=== PATIENT | female | born 1940 | race Caucasian/White ===

== ENCOUNTER 2018-03-24 13:36 | Emergency (ER) | payer MEDICARE, OTHER ==
[~2018-03-24] VITALS: Ht 172.7 cm; Wt 78.8 kg
[~2018-03-24 13:36] MED LIST: AMI25T PO; DILT180C89 PO; LISI40TA4 PO; METF500T PO; MULT-785 PO; OMEP-84 PO; ZET10T PO
[2018-03-24 14:22] LABS: CLARITY,URINE CLEAR (Clear); COLOR,URINE YELLOW (Yellow); GLUCOSE, URINE NEGATIVE (Neg); KETONES,URINE NEGATIVE (Neg); LEUKOCYTE ESTERASE ,URINE NEGATIVE (Neg); NITRITES, URINE NEGATIVE (Neg); OCCULT BLOOD,URINE SMALL (Neg); PH,URINE 5.5 (4.8-8.0); PROTEIN,URINE NEGATIVE (Neg); UROBILINOGEN,URINE 0.2 E.U/dL (0.2-1.0)
[2018-03-24 14:25] LABS: BASOPHILS % (AUTO) 0.3 % (0-1); EOSINOPHILS % (AUTO) 0.5 % (0-6); HEMATOCRIT 37.4 % (35.0-45.0); LYMPHOCYTES # (AUTO) 0.9 X10'3 (1.1-4.8); MEAN CORPUSCULAR HGB CONC 34.8 % (33.0-36.5); MEAN CORPUSCULAR VOLUME 92.2 FL (78-98); MEAN PLATELET VOLUME 8.5 FL (7.4-10.4); MONOCYTES # (AUTO) 0.3 X10'3 (0-0.9); MONOCYTES % (AUTO) 3.8 % (2-12); NEUTROPHILS # (AUTO) 7.4 X10'3 (1.8-7.7); NEUTROPHILS % (AUTO) 84.4 % (42-75); PLATELET COUNT 205 X10'3 (140-440); RED BLOOD COUNT 4.05 X10'6 (4.20-5.60); RED CELL DISTRIBUTION WIDTH 13.3 % (11.5-14.5); WHITE BLOOD COUNT 8.6 X10'3 (4.5-11.0)
[2018-03-24 14:32] LABS: PROTHROMBIN TIME 10.4 SECONDS (9.0-12.0)
[2018-03-24 14:33] LABS: UA COLLECTION TYPE CLN CATCH MIDSTREAM
[2018-03-24 14:34] LABS: BACTERIA,URINE 1+ /HPF (Neg); MUCUS STRANDS MANY /LPF (Neg); RBC,URINE 0-2 /HPF (0-2); SQUAMOUS EPITHELIAL CELL,UR MANY /LPF (FEW); WBC,URINE 0-4 /HPF (0-4)
[2018-03-24 14:43] LABS: ALANINE AMINOTRANSFERASE 39 U/L (12-78); ALBUMIN 4.1 G/DL (3.4-5.0); ALBUMIN/GLOBULIN RATIO 1.1 (1.1-1.5); ALKALINE PHOSPHATASE 70 IU/L (46-116); ANION GAP 11 (8-16); ASPARTATE AMINO TRANSFERASE 37 U/L (10-37); BILIRUBIN,TOTAL 0.4 MG/DL (0.1-1.0); BLOOD UREA NITROGEN 20 MG/DL (7-18); BUN/CREATININE RATIO 23.8 (6.6-38.0); CHLORIDE 101 MMOL/L (99-107); CREATININE 0.84 MG/DL (0.40-0.90); GLUCOSE 126 MG/DL (70-104); POTASSIUM 3.9 MMOL/L (3.5-5.1); SODIUM 140 MMOL/L (135-145); TOTAL CARBON DIOXIDE 28.1 MMOL/L (24-32); TOTAL PROTEIN 7.9 G/DL (6.4-8.2); eGFR 66 ML/MIN
[2018-03-24] MEDS ORDERED: ondansetron/PF 4mg/2ml inj IV ONE (14:55)
[2018-03-24] MEDS ORDERED: fentaNYL/PF 50MCG/1 ML 2ML syringe IV ONE ×2 (14:55→16:55)
[2018-03-24] MEDS ORDERED: iohexol 300mg/ml 100ml inj. ONE (15:01)
[2018-03-24] MEDS ORDERED: fentaNYL/PF 50MCG/1 ML 2ML syringe ONE (16:57)
[2018-03-24 17:42] VITALS: BP 154/88
[2018-03-24] MEDS ORDERED: HYDR-4353 PO (17:42)
== END 2018-03-24 17:49 | disposition home or self-care (01) ==
LOC: ER 13:36
DX: K43.9 Ventral hernia without obstruction or gangrene (principal); R10.84 Generalized abdominal pain; I10 Essential (primary) hypertension; E11.9 Type 2 diabetes mellitus without complications; Z98.890 Other specified postprocedural states; Z90.710 Acquired absence of both cervix and uterus; Z87.891 Personal history of nicotine dependence; Z88.1 Allergy status to other antibiotic agents; Z88.6 Allergy status to analgesic agent; Z88.5 Allergy status to narcotic agent; Z79.899 Other long term (current) drug therapy
CPT/HCPCS: 36415; 74177; 80053; 81001; 85025; 85610; 96374; 96375; 96376; 99285; J2405; J3010; Q9967

== ENCOUNTER 2018-03-25 01:39 | Emergency (ER) | payer MEDICARE, OTHER ==
[~2018-03-25] VITALS: Ht 165.1 cm; Wt 79.5 kg
[~2018-03-25 01:39] MED LIST changes: +HYDR-4353 PO
[2018-03-25 01:40] VITALS: BP 193/97
[2018-03-25] MEDS ORDERED: morphine 4 MG/ML inj SYRINge IV PRN (02:15)
[2018-03-25] MEDS ORDERED: ondansetron/PF 4mg/2ml inj IV ONE (02:15)
[2018-03-25] MEDS ORDERED: normal saline 1000ML IV soln IVB ONE (02:15)
[2018-03-25 02:39] LABS: BASOPHILS % (AUTO) 0 % (0-1); EOSINOPHILS % (AUTO) 0.2 % (0-6); HEMOGLOBIN 14.1 g/dl (12.0-16.0); LYMPHOCYTES # (AUTO) 0.8 X10'3 (1.1-4.8); MEAN CORPUSCULAR HGB CONC 33.5 % (33.0-36.5); MEAN CORPUSCULAR VOLUME 92.6 FL (78-98); MEAN PLATELET VOLUME 8.4 FL (7.4-10.4); MONOCYTES # (AUTO) 0.4 X10'3 (0-0.9); MONOCYTES % (AUTO) 3.5 % (2-12); NEUTROPHILS # (AUTO) 9.4 X10'3 (1.8-7.7); NEUTROPHILS % (AUTO) 88.3 % (42-75); PLATELET COUNT 202 X10'3 (140-440); RED BLOOD COUNT 4.53 X10'6 (4.20-5.60); RED CELL DISTRIBUTION WIDTH 13.1 % (11.5-14.5); WHITE BLOOD COUNT 10.6 X10'3 (4.5-11.0)
[2018-03-25 02:51] LABS: ALANINE AMINOTRANSFERASE 42 U/L (12-78); ALBUMIN 4.1 G/DL (3.4-5.0); ALKALINE PHOSPHATASE 73 IU/L (46-116); ANION GAP 12 (8-16); ASPARTATE AMINO TRANSFERASE 35 U/L (10-37); BILIRUBIN,TOTAL 0.7 MG/DL (0.1-1.0); BLOOD UREA NITROGEN 18 MG/DL (7-18); BUN/CREATININE RATIO 20.7 (6.6-38.0); CALCIUM 9.4 MG/DL (8.5-10.1); CHLORIDE 100 MMOL/L (99-107); CREATININE 0.87 MG/DL (0.40-0.90); GLUCOSE 175 MG/DL (70-104); LIPASE 195 U/L (73-393); POTASSIUM 3.7 MMOL/L (3.5-5.1); SODIUM 138 MMOL/L (135-145); TOTAL CARBON DIOXIDE 25.6 MMOL/L (24-32); TOTAL PROTEIN 8.1 G/DL (6.4-8.2); eGFR 63 ML/MIN
== END 2018-03-25 03:17 | disposition home or self-care (01) ==
LOC: ER 01:39
DX: R10.84 Generalized abdominal pain (principal); R10.10 Upper abdominal pain, unspecified; I10 Essential (primary) hypertension; E11.9 Type 2 diabetes mellitus without complications; Z90.49 Acquired absence of other specified parts of digestive tract; Z90.710 Acquired absence of both cervix and uterus; Z98.890 Other specified postprocedural states; Z88.1 Allergy status to other antibiotic agents; Z88.6 Allergy status to analgesic agent; Z88.5 Allergy status to narcotic agent; Z79.899 Other long term (current) drug therapy
CPT/HCPCS: 36415; 80053; 83690; 85025; 96361; 96374; 99284; J2405; J7030

== ENCOUNTER 2024-02-03 18:57 | Inpatient (IN) | payer MEDICARE, OTHER ==
[~2024-02-03] VITALS: Ht 177.8 cm; Wt 86.3 kg
[~2024-02-03 18:57] MED LIST changes: -HYDR-4353 PO; +LISI40TA13 PO; -LISI40TA4 PO
[2024-02-03 20:30] LABS: BILIRUBIN,URINE NEGATIVE (Neg); CLARITY,URINE CLEAR (Clear); COLOR,URINE YELLOW (Yellow); GLUCOSE, URINE NEGATIVE (Neg); KETONES,URINE NEGATIVE (Neg); LEUKOCYTE ESTERASE ,URINE NEGATIVE (Neg); NITRITES, URINE NEGATIVE (Neg); OCCULT BLOOD,URINE NEGATIVE (Neg); PROTEIN,URINE NEGATIVE (Neg); UROBILINOGEN,URINE 0.2 E.U/dL (0.2-1.0)
[2024-02-03 20:42] LABS: UA COLLECTION TYPE CLN CATCH MIDSTREAM
[2024-02-03 21:48] LABS: BASOPHILS % (AUTO) 0.6 % (0-1); EOSINOPHILS # (AUTO) 0.1 X10'3 (0-0.9); EOSINOPHILS % (AUTO) 1.9 % (0-6); HEMATOCRIT 38.2 % (35.0-45.0); HEMOGLOBIN 12.6 g/dl (12.0-16.0); LYMPHOCYTES # (AUTO) 1.5 X10'3 (1.1-4.8); LYMPHOCYTES % (AUTO) 19.1 % (21-51); MEAN CORPUSCULAR HEMOGLOBIN 31.2 PG (27.0-31.0); MEAN CORPUSCULAR HGB CONC 32.9 g/dL (33.0-36.5); MEAN CORPUSCULAR VOLUME 94.8 FL (78-98); MEAN PLATELET VOLUME 8.6 FL (7.4-10.4); MONOCYTES # (AUTO) 0.4 X10'3 (0-0.9); MONOCYTES % (AUTO) 5.7 % (2-12); NEUTROPHILS # (AUTO) 5.7 X10'3 (1.8-7.7); NEUTROPHILS % (AUTO) 72.7 % (42-75); PLATELET COUNT 252 X10'3 (140-440); RED BLOOD COUNT 4.03 X10'6 (4.20-5.60); RED CELL DISTRIBUTION WIDTH 14.6 % (11.5-14.5); WHITE BLOOD COUNT 7.8 X10'3 (4.5-11.0)
[2024-02-03 22:05] LABS: ALANINE AMINOTRANSFERASE 32 U/L (12-78); ALBUMIN 3.5 G/DL (3.4-5.0); ALBUMIN/GLOBULIN RATIO 0.9 (1.1-1.5); ALKALINE PHOSPHATASE 85 IU/L (46-116); ANION GAP 6 (8-16); ASPARTATE AMINO TRANSFERASE 23 U/L (10-37); BILIRUBIN,TOTAL 0.3 MG/DL (0.1-1.0); BLOOD UREA NITROGEN 17 MG/DL (7-18); BUN/CREATININE RATIO 17.3 (10.0-20.0); CALCIUM 8.7 MG/DL (8.5-10.1); CHLORIDE 104 MMOL/L (99-107); CREATININE 0.98 MG/DL (0.40-0.90); GLUCOSE 129 MG/DL (70-104); SODIUM 141 MMOL/L (135-145); TOTAL CARBON DIOXIDE 30.9 MMOL/L (24-32); TOTAL PROTEIN 7.3 G/DL (6.4-8.2); eCRCL 47 ML/MIN; eGFR 54 ML/MIN
[2024-02-03] MEDS: potassium Cl 20 mEq SR tablet PO STA (23:03)
[2024-02-03] MEDS: LORazepam 2 mg/ml vial IV ONE (23:22)
[2024-02-04] MEDS: LORazepam 2 mg/ml vial IV ONE (01:57)
[2024-02-04] MEDS: haloperidol lactate 5mg/ml inj IVH ONE (01:59)
[2024-02-04] MEDS: ziprasidone IM 20mg inj **IM only IM ONE (02:45)
[2024-02-04] MEDS: normal saline 1000ml 1,000 ML IV SCH (03:00)
[2024-02-04] MEDS ORDERED: potassium Cl 40MEQ/1/2NS 520ml 520 ML IV PRN (03:25)
[2024-02-04] MEDS ORDERED: magnesium sulf-water 4G/100mL 100 ML IV PRN (03:25)
[2024-02-04] MEDS ORDERED: acetaminophen 325mg tablet PO PRN (03:25)
[2024-02-04] MEDS ORDERED: potassium Cl 20 mEq SR tablet PO PRN (03:25)
[2024-02-04] MEDS ORDERED: magnesium sulf-water 2g/50mL 50 ML IV PRN (03:25)
[2024-02-04] MEDS ORDERED: ondansetron/PF 4mg/2ml inj IV PRN (03:25)
[2024-02-04] MEDS ORDERED: magnesium Cl slow-release 64mg tablet PO PRN (03:25)
[2024-02-04] MEDS ORDERED: mag hydrox/Alum hydrox/simeth 30ml oral suspension PO PRN (03:25)
[2024-02-04] MEDS: haloperidol lactate 5mg/ml inj IM ONE (04:26)
[2024-02-04] MEDS ORDERED: glucagon, human recombinant 1mg kit SUBCUT PRN (04:35)
[2024-02-04] MEDS ORDERED: dextrose 50%-water 50ml dispensing syringe IV PRN ×2 (04:35)
[2024-02-04] MEDS ORDERED: DEXTROSE 15 GM of carb/4 tabs (each vial/BOTTLE has 4 tablets) PO PRN ×2 (04:35)
[2024-02-04] MEDS: LORazepam 2 mg/ml vial IV PRN (04:52)
[2024-02-04 06:13] LABS: HEMOGLOBIN A1C 6.7 % (4.5-6.2)
[2024-02-04] MEDS: enoxaparin 40mg/0.4ml syringe SUBCUT SCH (07:44)
[2024-02-04 08:00] VITALS: RESP 16; O2SAT 99
[2024-02-04] MEDS: K and/or MAG REPLACEMENT MC SCH (08:00)
[2024-02-04 09:06] LABS: BASOPHILS % (AUTO) 0.3 % (0-1); EOSINOPHILS % (AUTO) 0.4 % (0-6); HEMATOCRIT 39.1 % (35.0-45.0); HEMOGLOBIN 13.1 g/dl (12.0-16.0); LYMPHOCYTES # (AUTO) 0.9 X10'3 (1.1-4.8); LYMPHOCYTES % (AUTO) 9.8 % (21-51); MEAN CORPUSCULAR HEMOGLOBIN 31.8 PG (27.0-31.0); MEAN CORPUSCULAR HGB CONC 33.4 g/dL (33.0-36.5); MEAN CORPUSCULAR VOLUME 95.2 FL (78-98); MEAN PLATELET VOLUME 9.3 FL (7.4-10.4); MONOCYTES # (AUTO) 0.4 X10'3 (0-0.9); MONOCYTES % (AUTO) 4.6 % (2-12); NEUTROPHILS # (AUTO) 7.6 X10'3 (1.8-7.7); NEUTROPHILS % (AUTO) 84.9 % (42-75); PLATELET COUNT 215 X10'3 (140-440); RED BLOOD COUNT 4.11 X10'6 (4.20-5.60); RED CELL DISTRIBUTION WIDTH 14.3 % (11.5-14.5)
[2024-02-04] MEDS: INSULIN LISPRO 100 UNIT/ML INSULN.PEN MULTI-DOSE SQ SCH ×2 (09:27→09:28)
[2024-02-04 09:35] LABS: ALANINE AMINOTRANSFERASE 31 U/L (12-78); ALBUMIN 3.5 G/DL (3.4-5.0); ALBUMIN/GLOBULIN RATIO 0.9 (1.1-1.5); ALKALINE PHOSPHATASE 79 IU/L (46-116); ANION GAP 12 (8-16); ASPARTATE AMINO TRANSFERASE 28 U/L (10-37); BILIRUBIN,TOTAL 0.5 MG/DL (0.1-1.0); BLOOD UREA NITROGEN 12 MG/DL (7-18); BUN/CREATININE RATIO 14.5 (10.0-20.0); CALCIUM 8.8 MG/DL (8.5-10.1); CHLORIDE 101 MMOL/L (99-107); CREATININE 0.83 MG/DL (0.40-0.90); GLUCOSE 148 MG/DL (70-104); MAGNESIUM 1.7 MG/DL (1.5-2.4); SODIUM 138 MMOL/L (135-145); TOTAL CARBON DIOXIDE 24.8 MMOL/L (24-32); TOTAL PROTEIN 7.4 G/DL (6.4-8.2); eCRCL 56 ML/MIN; eGFR 66 ML/MIN
[2024-02-04 09:36] LABS: POTASSIUM 3.8 MMOL/L (3.5-5.1); THYROID STIMULATING HORMONE 2.23 ulU/ml (0.34-4.50)
[2024-02-04 09:38] LABS: ETHANOL < 10 MG/DL (<10)
[2024-02-04 10:00] VITALS: BP 132/74; PULSE 81; RESP 16; TEMP 97.3; O2SAT 99
[2024-02-04 10:24] VITALS: BP 132/74; PULSE 81; RESP 16; TEMP 97.3; O2SAT 99
[2024-02-04] MEDS ORDERED: METO-384 PO (14:14)
[2024-02-04] MEDS ORDERED: CETI10CA PO (14:14)
[2024-02-04 18:00] VITALS: BP 154/92; PULSE 82; RESP 18; TEMP 97.2; O2SAT 100
[2024-02-04 20:00] VITALS: RESP 18
[2024-02-04] MEDS: traMADol 50MG tablet PO PRN (21:31)
[2024-02-04] MEDS: nystatin 15 GM powder TP SCH (21:35)
[2024-02-04] MEDS: insulin glargine (Lantus) pen - multi-dose SQ SCH (21:45)
[2024-02-04 22:00] VITALS: BP 173/100; PULSE 108; RESP 19; TEMP 98.1; O2SAT 94
[2024-02-05 00:51] LABS: BILIRUBIN,URINE NEGATIVE (Neg); CLARITY,URINE CLEAR (Clear); COLOR,URINE STRAW (Yellow); GLUCOSE, URINE NEGATIVE (Neg); KETONES,URINE NEGATIVE (Neg); LEUKOCYTE ESTERASE ,URINE NEGATIVE (Neg); NITRITES, URINE NEGATIVE (Neg); OCCULT BLOOD,URINE TRACE-INTACT (Neg); PROTEIN,URINE NEGATIVE (Neg); UROBILINOGEN,URINE 0.2 E.U/dL (0.2-1.0)
[2024-02-05 01:04] LABS: UA COLLECTION TYPE STRAIGHT CATH
[2024-02-05 01:06] LABS: BACTERIA,URINE FEW /HPF (Neg); SQUAMOUS EPITHELIAL CELL,UR FEW /LPF (FEW); WBC,URINE 0-4 /HPF (0-4)
[2024-02-05 01:07] LABS: TRANSITIONAL EPI CELLS,URINE FEW /HPF
[2024-02-05 01:08] LABS: RBC,URINE 0-2 /HPF (0-2)
[2024-02-05] MEDS: acetaminophen 325mg tablet PO PRN (01:17)
[2024-02-05] MEDS: Melatonin 3mg tablet PO SCH (01:17)
[2024-02-05 06:00] VITALS: BP 157/86; PULSE 86; RESP 22; TEMP 97.8; O2SAT 96
[2024-02-05 07:32] LABS: BASOPHILS % (AUTO) 0.3 % (0-1); EOSINOPHILS # (AUTO) 0.1 X10'3 (0-0.9); EOSINOPHILS % (AUTO) 1.3 % (0-6); HEMATOCRIT 38.2 % (35.0-45.0); HEMOGLOBIN 12.9 g/dl (12.0-16.0); LYMPHOCYTES # (AUTO) 1.2 X10'3 (1.1-4.8); LYMPHOCYTES % (AUTO) 11.6 % (21-51); MEAN CORPUSCULAR HEMOGLOBIN 31.9 PG (27.0-31.0); MEAN CORPUSCULAR HGB CONC 33.6 g/dL (33.0-36.5); MEAN CORPUSCULAR VOLUME 94.8 FL (78-98); MEAN PLATELET VOLUME 9.4 FL (7.4-10.4); MONOCYTES # (AUTO) 0.5 X10'3 (0-0.9); MONOCYTES % (AUTO) 5.3 % (2-12); NEUTROPHILS # (AUTO) 8.2 X10'3 (1.8-7.7); NEUTROPHILS % (AUTO) 81.5 % (42-75); PLATELET COUNT 225 X10'3 (140-440); RED BLOOD COUNT 4.03 X10'6 (4.20-5.60); RED CELL DISTRIBUTION WIDTH 14.2 % (11.5-14.5); WHITE BLOOD COUNT 10.1 X10'3 (4.5-11.0)
[2024-02-05 07:54] LABS: ALANINE AMINOTRANSFERASE 31 U/L (12-78); ALBUMIN 3.3 G/DL (3.4-5.0); ALBUMIN/GLOBULIN RATIO 0.9 (1.1-1.5); ALKALINE PHOSPHATASE 76 IU/L (46-116); ANION GAP 9 (8-16); ASPARTATE AMINO TRANSFERASE 42 U/L (10-37); BILIRUBIN,TOTAL 0.5 MG/DL (0.1-1.0); BLOOD UREA NITROGEN 14 MG/DL (7-18); BUN/CREATININE RATIO 16.1 (10.0-20.0); CALCIUM 8.8 MG/DL (8.5-10.1); CHLORIDE 102 MMOL/L (99-107); CREATININE 0.87 MG/DL (0.40-0.90); GLUCOSE 127 MG/DL (70-104); MAGNESIUM 1.6 MG/DL (1.5-2.4); PHOSPHORUS 3.2 MG/DL (2.3-4.5); POTASSIUM 3.3 MMOL/L (3.5-5.1); SODIUM 137 MMOL/L (135-145); TOTAL CARBON DIOXIDE 25.8 MMOL/L (24-32); TOTAL PROTEIN 6.9 G/DL (6.4-8.2); eCRCL 53 ML/MIN; eGFR 62 ML/MIN
[2024-02-05 08:00] VITALS: RESP 14; O2SAT 96
[2024-02-05] MEDS: potassium Cl 20 mEq SR tablet PO PRN (08:18)
[2024-02-05 10:00] VITALS: BP 137/85; PULSE 104; RESP 18; TEMP 97.8; O2SAT 96
[2024-02-05 16:58] VITALS: BP 168/108; PULSE 100; RESP 18; TEMP 98.2; O2SAT 97
[2024-02-05] MEDS ORDERED: iohexol 350MG/ML 100ml bottle IV ONE (18:00)
[2024-02-05 20:50] VITALS: RESP 17
[2024-02-05 22:00] VITALS: BP 147/71; PULSE 87; RESP 18; TEMP 97.8; O2SAT 95
[2024-02-06] VITALS (7 sets, daily range): BP systolic 119–158; BP diastolic 67–93; PULSE 77–97; RESP 14–18; TEMP 97.9–98; O2SAT 94–98
[2024-02-06 06:28] LABS: BASOPHILS % (AUTO) 0.3 % (0-1); EOSINOPHILS # (AUTO) 0.1 X10'3 (0-0.9); EOSINOPHILS % (AUTO) 1.6 % (0-6); HEMOGLOBIN 12.7 g/dl (12.0-16.0); LYMPHOCYTES # (AUTO) 1.2 X10'3 (1.1-4.8); LYMPHOCYTES % (AUTO) 13.5 % (21-51); MEAN CORPUSCULAR HEMOGLOBIN 31.4 PG (27.0-31.0); MEAN CORPUSCULAR HGB CONC 33.4 g/dL (33.0-36.5); MEAN CORPUSCULAR VOLUME 94.1 FL (78-98); MEAN PLATELET VOLUME 8.9 FL (7.4-10.4); MONOCYTES # (AUTO) 0.6 X10'3 (0-0.9); MONOCYTES % (AUTO) 6.9 % (2-12); NEUTROPHILS # (AUTO) 6.7 X10'3 (1.8-7.7); NEUTROPHILS % (AUTO) 77.7 % (42-75); PLATELET COUNT 220 X10'3 (140-440); RED BLOOD COUNT 4.04 X10'6 (4.20-5.60); RED CELL DISTRIBUTION WIDTH 14.4 % (11.5-14.5); WHITE BLOOD COUNT 8.6 X10'3 (4.5-11.0)
[2024-02-06 06:47] LABS: ALANINE AMINOTRANSFERASE 33 U/L (12-78); ALBUMIN 3.2 G/DL (3.4-5.0); ALBUMIN/GLOBULIN RATIO 0.9 (1.1-1.5); ALKALINE PHOSPHATASE 72 IU/L (46-116); ANION GAP 7 (8-16); ASPARTATE AMINO TRANSFERASE 42 U/L (10-37); BILIRUBIN,TOTAL 0.5 MG/DL (0.1-1.0); BLOOD UREA NITROGEN 12 MG/DL (7-18); BUN/CREATININE RATIO 14.3 (10.0-20.0); CALCIUM 8.9 MG/DL (8.5-10.1); CHLORIDE 100 MMOL/L (99-107); CREATININE 0.84 MG/DL (0.40-0.90); GLUCOSE 142 MG/DL (70-104); MAGNESIUM 1.6 MG/DL (1.5-2.4); SODIUM 133 MMOL/L (135-145); TOTAL CARBON DIOXIDE 26.5 MMOL/L (24-32); TOTAL PROTEIN 6.7 G/DL (6.4-8.2); eCRCL 55 ML/MIN; eGFR 65 ML/MIN
[2024-02-06] MEDS: diltiazem CD 180mg cap (once-daily) PO SCH (07:27)
[2024-02-06] MEDS: ezetimibe 10mg tablet PO SCH (07:27)
[2024-02-06] MEDS: metoprolol succinate 25mg (24-HOUR) SR. Tablet PO SCH (07:29)
[2024-02-06] MEDS: lisinopril 20mg tablet PO SCH (07:30)
[2024-02-06] MEDS: prazosin 1mg capsule PO SCH (20:00)
[2024-02-07 05:57] LABS: BASOPHILS % (AUTO) 0.3 % (0-1); EOSINOPHILS # (AUTO) 0.1 X10'3 (0-0.9); EOSINOPHILS % (AUTO) 0.9 % (0-6); HEMATOCRIT 35.3 % (35.0-45.0); LYMPHOCYTES # (AUTO) 0.8 X10'3 (1.1-4.8); LYMPHOCYTES % (AUTO) 10.7 % (21-51); MEAN CORPUSCULAR HEMOGLOBIN 31.9 PG (27.0-31.0); MEAN PLATELET VOLUME 8.6 FL (7.4-10.4); MONOCYTES # (AUTO) 0.4 X10'3 (0-0.9); MONOCYTES % (AUTO) 5.3 % (2-12); NEUTROPHILS # (AUTO) 6.2 X10'3 (1.8-7.7); NEUTROPHILS % (AUTO) 82.8 % (42-75); PLATELET COUNT 188 X10'3 (140-440); RED BLOOD COUNT 3.76 X10'6 (4.20-5.60); RED CELL DISTRIBUTION WIDTH 14.1 % (11.5-14.5); WHITE BLOOD COUNT 7.5 X10'3 (4.5-11.0)
[2024-02-07 06:17] LABS: ALANINE AMINOTRANSFERASE 36 U/L (12-78); ALBUMIN 3.1 G/DL (3.4-5.0); ALKALINE PHOSPHATASE 68 IU/L (46-116); ANION GAP 9 (8-16); ASPARTATE AMINO TRANSFERASE 40 U/L (10-37); BILIRUBIN,TOTAL 0.5 MG/DL (0.1-1.0); BLOOD UREA NITROGEN 16 MG/DL (7-18); BUN/CREATININE RATIO 18.8 (10.0-20.0); CALCIUM 8.5 MG/DL (8.5-10.1); CHLORIDE 97 MMOL/L (99-107); CREATININE 0.85 MG/DL (0.40-0.90); GLUCOSE 137 MG/DL (70-104); MAGNESIUM 1.6 MG/DL (1.5-2.4); PHOSPHORUS 3.8 MG/DL (2.3-4.5); POTASSIUM 3.5 MMOL/L (3.5-5.1); SODIUM 131 MMOL/L (135-145); TOTAL CARBON DIOXIDE 25.3 MMOL/L (24-32); TOTAL PROTEIN 6.2 G/DL (6.4-8.2); eCRCL 54 ML/MIN; eGFR 64 ML/MIN
[2024-02-07 07:58] VITALS: BP 122/59; PULSE 74; RESP 18; TEMP 97.4; O2SAT 97
[2024-02-07 08:00] VITALS: RESP 16
[2024-02-07 08:01] LABS: PRO BRAIN NATRIURETIC PEPTIDE 4130 PG/ML (0-450)
[2024-02-07 11:16] VITALS: BP 110/67; PULSE 65; RESP 18; TEMP 97.2; O2SAT 97
[2024-02-07] MEDS: furosemide 40mg tablet PO SCH (12:36)
[2024-02-07] MEDS: HYDROcodone/acetaminophen 5mg/325mg tablet PO PRN (12:37)
[2024-02-07 18:00] VITALS: BP 118/61; PULSE 65; RESP 18; TEMP 97.5; O2SAT 97
[2024-02-07 20:20] VITALS: RESP 16
[2024-02-07 22:00] VITALS: BP 154/77; PULSE 73; RESP 16; TEMP 96.9; O2SAT 96
[2024-02-08 05:56] LABS: BASOPHILS % (AUTO) 0.2 % (0-1); EOSINOPHILS # (AUTO) 0.1 X10'3 (0-0.9); EOSINOPHILS % (AUTO) 0.8 % (0-6); HEMATOCRIT 39.1 % (35.0-45.0); HEMOGLOBIN 13.1 g/dl (12.0-16.0); LYMPHOCYTES % (AUTO) 8.3 % (21-51); MEAN CORPUSCULAR HEMOGLOBIN 31.3 PG (27.0-31.0); MEAN CORPUSCULAR HGB CONC 33.6 g/dL (33.0-36.5); MEAN CORPUSCULAR VOLUME 92.9 FL (78-98); MEAN PLATELET VOLUME 8.9 FL (7.4-10.4); MONOCYTES # (AUTO) 0.6 X10'3 (0-0.9); MONOCYTES % (AUTO) 5.2 % (2-12); NEUTROPHILS # (AUTO) 10.3 X10'3 (1.8-7.7); NEUTROPHILS % (AUTO) 85.5 % (42-75); PLATELET COUNT 296 X10'3 (140-440); RED BLOOD COUNT 4.21 X10'6 (4.20-5.60); RED CELL DISTRIBUTION WIDTH 14.2 % (11.5-14.5)
[2024-02-08 06:09] LABS: ALANINE AMINOTRANSFERASE 47 U/L (12-78); ALBUMIN 3.6 G/DL (3.4-5.0); ALBUMIN/GLOBULIN RATIO 1.1 (1.1-1.5); ALKALINE PHOSPHATASE 81 IU/L (46-116); ANION GAP 15 (8-16); ASPARTATE AMINO TRANSFERASE 56 U/L (10-37); BILIRUBIN,TOTAL 0.8 MG/DL (0.1-1.0); BLOOD UREA NITROGEN 18 MG/DL (7-18); BUN/CREATININE RATIO 16.7 (10.0-20.0); CALCIUM 8.5 MG/DL (8.5-10.1); CHLORIDE 92 MMOL/L (99-107); CREATININE 1.08 MG/DL (0.40-0.90); GLUCOSE 154 MG/DL (70-104); MAGNESIUM 1.3 MG/DL (1.5-2.4); PHOSPHORUS 3.9 MG/DL (2.3-4.5); POTASSIUM 3.5 MMOL/L (3.5-5.1); SODIUM 127 MMOL/L (135-145); TOTAL CARBON DIOXIDE 20.5 MMOL/L (24-32); eCRCL 43 ML/MIN; eGFR 48 ML/MIN
[2024-02-08] MEDS ORDERED: normal saline 500ml IV soln 500 ML IV SCH (07:15)
[2024-02-08] MEDS: normal saline 250ml IV soln 250 ML IV STA (07:41)
[2024-02-08 08:00] VITALS: RESP 14; O2SAT 97
[2024-02-08] MEDS: metoprolol succinate 25mg (24-HOUR) SR. Tablet PO SCH (09:50)
[2024-02-08] MEDS: apixaban 5mg tablet PO SCH (09:50)
[2024-02-08 10:00] VITALS: BP 159/87; PULSE 85; RESP 18; TEMP 97.7; O2SAT 97
[2024-02-08] MEDS ORDERED: potassium Cl 20 mEq SR tablet PO PRN (11:15)
[2024-02-08] MEDS ORDERED: magnesium Cl slow-release 64mg tablet PO PRN (11:15)
[2024-02-08 12:34] LABS: ALBUMIN 3.5 G/DL (3.4-5.0); ANION GAP 12 (8-16); BLOOD UREA NITROGEN 18 MG/DL (7-18); CALCIUM 8.8 MG/DL (8.5-10.1); CHLORIDE 91 MMOL/L (99-107); GLUCOSE 132 MG/DL (70-104); POTASSIUM 3.5 MMOL/L (3.5-5.1); SODIUM 126 MMOL/L (135-145); TOTAL CARBON DIOXIDE 22.6 MMOL/L (24-32); eCRCL 51 ML/MIN; eGFR 60 ML/MIN
[2024-02-08] MEDS ORDERED: LORazepam 2 mg/ml vial IV ONE (14:35)
[2024-02-08] MEDS: LORazepam 2 mg/ml vial IM ONE (15:13)
[2024-02-08] MEDS: magnesium sulf-water 4G/100mL 100 ML IV PRN (17:37)
[2024-02-08] MEDS: normal saline 250ml IV soln 250 ML IV ONE (18:54)
[2024-02-08] MEDS: QUEtiapine 25mg tablet PO SCH (19:23)
[2024-02-08 19:44] LABS: ALBUMIN 3.7 G/DL (3.4-5.0); ANION GAP 11 (8-16); BLOOD UREA NITROGEN 18 MG/DL (7-18); CALCIUM 8.7 MG/DL (8.5-10.1); CHLORIDE 91 MMOL/L (99-107); CREATININE 1.06 MG/DL (0.40-0.90); GLUCOSE 132 MG/DL (70-104); POTASSIUM 3.9 MMOL/L (3.5-5.1); SODIUM 124 MMOL/L (135-145); TOTAL CARBON DIOXIDE 21.6 MMOL/L (24-32); eCRCL 43 ML/MIN; eGFR 50 ML/MIN
[2024-02-08] MEDS ORDERED: apixaban 5mg tablet PO SCH (20:00)
[2024-02-08 22:00] VITALS: BP 160/74; PULSE 99; RESP 15; TEMP 97.9; O2SAT 100
[2024-02-08] MEDS: olanzapine 10mg tablet PO SCH (22:10)
[2024-02-09 04:43] LABS: BASOPHILS % (AUTO) 0.2 % (0-1); EOSINOPHILS # (AUTO) 0.1 X10'3 (0-0.9); EOSINOPHILS % (AUTO) 0.4 % (0-6); HEMATOCRIT 40.5 % (35.0-45.0); HEMOGLOBIN 13.5 g/dl (12.0-16.0); LYMPHOCYTES # (AUTO) 1.1 X10'3 (1.1-4.8); LYMPHOCYTES % (AUTO) 8.3 % (21-51); MEAN CORPUSCULAR HEMOGLOBIN 31.3 PG (27.0-31.0); MEAN CORPUSCULAR HGB CONC 33.4 g/dL (33.0-36.5); MEAN CORPUSCULAR VOLUME 93.6 FL (78-98); MONOCYTES # (AUTO) 0.9 X10'3 (0-0.9); MONOCYTES % (AUTO) 6.6 % (2-12); NEUTROPHILS # (AUTO) 11.4 X10'3 (1.8-7.7); NEUTROPHILS % (AUTO) 84.5 % (42-75); PLATELET COUNT 302 X10'3 (140-440); RED BLOOD COUNT 4.33 X10'6 (4.20-5.60); RED CELL DISTRIBUTION WIDTH 14.1 % (11.5-14.5); WHITE BLOOD COUNT 13.5 X10'3 (4.5-11.0)
[2024-02-09 04:58] LABS: ALANINE AMINOTRANSFERASE 61 U/L (12-78); ALBUMIN 3.4 G/DL (3.4-5.0); ALBUMIN/GLOBULIN RATIO 1.1 (1.1-1.5); ALKALINE PHOSPHATASE 79 IU/L (46-116); ANION GAP 10 (8-16); ASPARTATE AMINO TRANSFERASE 92 U/L (10-37); BILIRUBIN,TOTAL 1.2 MG/DL (0.1-1.0); BLOOD UREA NITROGEN 14 MG/DL (7-18); BUN/CREATININE RATIO 15.9 (10.0-20.0); CALCIUM 8.7 MG/DL (8.5-10.1); CHLORIDE 92 MMOL/L (99-107); CREATININE 0.88 MG/DL (0.40-0.90); GLUCOSE 119 MG/DL (70-104); PHOSPHORUS 2.9 MG/DL (2.3-4.5); POTASSIUM 3.1 MMOL/L (3.5-5.1); SODIUM 128 MMOL/L (135-145); TOTAL CARBON DIOXIDE 25.7 MMOL/L (24-32); TOTAL PROTEIN 6.6 G/DL (6.4-8.2); eCRCL 52 ML/MIN; eGFR 61 ML/MIN
[2024-02-09 08:41] LABS: C DIFFICILE TOXINS A&B NEGATIVE (Neg)
[2024-02-09 08:42] LABS: C DIFF ANTIGEN NEGATIVE (NEGATIVE); C DIFF SPECIMEN=DIARRHEA? ACCEPTABLE
[2024-02-09 18:00] VITALS: BP 160/74; PULSE 99; RESP 15; TEMP 97.9; O2SAT 100
[2024-02-09] MEDS: lactose-reduced food (Ensure Enlive) - 237ml bottle PO SCH (18:10)
[2024-02-09 20:00] VITALS: RESP 14
[2024-02-09] MEDS: OLANZapine 2.5MG tablet PO SCH (20:57)
[2024-02-09] MEDS: potassium Cl 40MEQ/1/2NS 520ml 520 ML IV PRN (23:09)
[2024-02-10] MEDS: traMADol 50MG tablet PO PRN (00:24)
[2024-02-10 07:36] LABS: BASOPHILS % (AUTO) 0.4 % (0-1); EOSINOPHILS # (AUTO) 0.2 X10'3 (0-0.9); EOSINOPHILS % (AUTO) 1.9 % (0-6); HEMATOCRIT 34.7 % (35.0-45.0); HEMOGLOBIN 11.7 g/dl (12.0-16.0); LYMPHOCYTES # (AUTO) 1.1 X10'3 (1.1-4.8); LYMPHOCYTES % (AUTO) 13.6 % (21-51); MEAN CORPUSCULAR HEMOGLOBIN 31.2 PG (27.0-31.0); MEAN CORPUSCULAR HGB CONC 33.6 g/dL (33.0-36.5); MONOCYTES # (AUTO) 0.6 X10'3 (0-0.9); MONOCYTES % (AUTO) 7.5 % (2-12); NEUTROPHILS # (AUTO) 6.2 X10'3 (1.8-7.7); NEUTROPHILS % (AUTO) 76.6 % (42-75); PLATELET COUNT 228 X10'3 (140-440); RED BLOOD COUNT 3.74 X10'6 (4.20-5.60); RED CELL DISTRIBUTION WIDTH 14.3 % (11.5-14.5); WHITE BLOOD COUNT 8.1 X10'3 (4.5-11.0)
[2024-02-10 07:54] LABS: ALBUMIN 3.1 G/DL (3.4-5.0); ANION GAP 9 (8-16); BLOOD UREA NITROGEN 21 MG/DL (7-18); BUN/CREATININE RATIO 19.8 (10.0-20.0); CALCIUM 8.5 MG/DL (8.5-10.1); CHLORIDE 99 MMOL/L (99-107); CREATININE 1.06 MG/DL (0.40-0.90); GLUCOSE 96 MG/DL (70-104); POTASSIUM 3.2 MMOL/L (3.5-5.1); SODIUM 133 MMOL/L (135-145); TOTAL CARBON DIOXIDE 25.3 MMOL/L (24-32); eCRCL 43 ML/MIN; eGFR 50 ML/MIN
[2024-02-10 08:00] VITALS: BP 108/48; PULSE 60; RESP 15; TEMP 97.4; O2SAT 95
[2024-02-10] MEDS ORDERED: OLANZapine 2.5MG tablet PO SCH (08:00)
[2024-02-10 09:00] VITALS: BP 95/41; PULSE 63; RESP 14; TEMP 97.8; O2SAT 92
[2024-02-10] MEDS: potassium Cl 20 mEq SR tablet PO PRN (11:04)
[2024-02-10] MEDS: loperamide 2mg capsule PO ONE (15:25)
[2024-02-10 18:00] VITALS: BP 112/52; PULSE 82; RESP 14; TEMP 97.6; O2SAT 98
[2024-02-10 22:00] VITALS: BP 125/57; PULSE 71; RESP 18; TEMP 97.9; O2SAT 99
[2024-02-11 06:00] VITALS: BP 119/63; PULSE 62; RESP 16; TEMP 98.5; O2SAT 97
[2024-02-11 08:04] LABS: BASOPHILS # (AUTO) 0.1 X10'3 (0-0.2); BASOPHILS % (AUTO) 0.9 % (0-1); EOSINOPHILS # (AUTO) 0.2 X10'3 (0-0.9); EOSINOPHILS % (AUTO) 2.5 % (0-6); HEMATOCRIT 35.8 % (35.0-45.0); HEMOGLOBIN 11.9 g/dl (12.0-16.0); LYMPHOCYTES # (AUTO) 1.4 X10'3 (1.1-4.8); LYMPHOCYTES % (AUTO) 18.4 % (21-51); MEAN CORPUSCULAR HEMOGLOBIN 31.4 PG (27.0-31.0); MEAN CORPUSCULAR HGB CONC 33.3 g/dL (33.0-36.5); MEAN CORPUSCULAR VOLUME 94.4 FL (78-98); MEAN PLATELET VOLUME 8.7 FL (7.4-10.4); MONOCYTES # (AUTO) 0.6 X10'3 (0-0.9); MONOCYTES % (AUTO) 8.1 % (2-12); NEUTROPHILS # (AUTO) 5.2 X10'3 (1.8-7.7); NEUTROPHILS % (AUTO) 70.1 % (42-75); PLATELET COUNT 233 X10'3 (140-440); RED BLOOD COUNT 3.79 X10'6 (4.20-5.60); RED CELL DISTRIBUTION WIDTH 14.6 % (11.5-14.5); WHITE BLOOD COUNT 7.4 X10'3 (4.5-11.0)
[2024-02-11 08:29] LABS: ALBUMIN 3.3 G/DL (3.4-5.0); ANION GAP 7 (8-16); BLOOD UREA NITROGEN 24 MG/DL (7-18); BUN/CREATININE RATIO 21.8 (10.0-20.0); CALCIUM 8.9 MG/DL (8.5-10.1); CHLORIDE 103 MMOL/L (99-107); GLUCOSE 123 MG/DL (70-104); POTASSIUM 4.1 MMOL/L (3.5-5.1); SODIUM 137 MMOL/L (135-145); TOTAL CARBON DIOXIDE 27.5 MMOL/L (24-32); eCRCL 42 ML/MIN; eGFR 47 ML/MIN
[2024-02-11 18:00] VITALS: BP 147/82; PULSE 99; RESP 14; TEMP 97.4; O2SAT 98
[2024-02-11] MEDS: cyclobenzaprine 10mg tablet PO PRN (19:09)
[2024-02-11 20:00] VITALS: RESP 14; O2SAT 98
[2024-02-11] MEDS: normal saline 1000ml 1,000 ML IV SCH (20:32)
[2024-02-12 02:32] LABS: SODIUM,URINE RANDOM 49 MEQ/L
[2024-02-12 02:38] LABS: URINE AMPHETAMINE SCREEN NEGATIVE (Neg); URINE BARBITUATE SCREEN NEGATIVE (Neg); URINE BENZODIAZEPINES SCREEN NEGATIVE (Neg); URINE CANNABINOID SCREEN NEGATIVE (Neg); URINE COCAINE SCREEN NEGATIVE (Neg); URINE METHADONE SCREEN NEGATIVE (Neg); URINE OPIATE SCREEN NEGATIVE (Neg); URINE PHENCYCLIDINE SCREEN NEGATIVE (Neg)
[2024-02-12 02:46] LABS: BILIRUBIN,URINE NEGATIVE (Neg); CLARITY,URINE CLOUDY (Clear); COLOR,URINE STRAW (Yellow); GLUCOSE, URINE NEGATIVE (Neg); KETONES,URINE NEGATIVE (Neg); LEUKOCYTE ESTERASE ,URINE SMALL (Neg); NITRITES, URINE NEGATIVE (Neg); OCCULT BLOOD,URINE NEGATIVE (Neg); PROTEIN,URINE NEGATIVE (Neg); UROBILINOGEN,URINE 0.2 E.U/dL (0.2-1.0)
[2024-02-12 02:52] LABS: UA COLLECTION TYPE CLN CATCH MIDSTREAM
[2024-02-12 02:54] LABS: AMORPHOUS URATES 1+; BACTERIA,URINE 1+ /HPF (Neg); RBC,URINE 0-2 /HPF (0-2); SQUAMOUS EPITHELIAL CELL,UR FEW /LPF (FEW)
[2024-02-12 03:08] LABS: OSMOLALITY UA 309 MOSM/K (50-1400)
[2024-02-12 06:00] VITALS: BP 149/80; PULSE 75; RESP 17; TEMP 97.6; O2SAT 96
[2024-02-12 07:24] LABS: POTASSIUM 4.2 MMOL/L (3.5-5.1)
[2024-02-12] MEDS: phenazopyridine 100mg tablet PO SCH (07:58)
[2024-02-12] MEDS: sulfamethoxazole/trimethoprim DS (800/160mg) tablet PO SCH (07:58)
[2024-02-12 08:00] VITALS: RESP 17; O2SAT 96
[2024-02-12 10:13] LABS: BASOPHILS # (AUTO) 0.1 X10'3 (0-0.2); BASOPHILS % (AUTO) 0.7 % (0-1); EOSINOPHILS # (AUTO) 0.2 X10'3 (0-0.9); EOSINOPHILS % (AUTO) 1.8 % (0-6); HEMATOCRIT 38.1 % (35.0-45.0); HEMOGLOBIN 12.7 g/dl (12.0-16.0); LYMPHOCYTES # (AUTO) 1.2 X10'3 (1.1-4.8); LYMPHOCYTES % (AUTO) 13.1 % (21-51); MEAN CORPUSCULAR HEMOGLOBIN 31.6 PG (27.0-31.0); MEAN CORPUSCULAR HGB CONC 33.3 g/dL (33.0-36.5); MEAN CORPUSCULAR VOLUME 94.9 FL (78-98); MEAN PLATELET VOLUME 9.2 FL (7.4-10.4); MONOCYTES # (AUTO) 0.7 X10'3 (0-0.9); MONOCYTES % (AUTO) 7.4 % (2-12); NEUTROPHILS # (AUTO) 6.8 X10'3 (1.8-7.7); PLATELET COUNT 270 X10'3 (140-440); RED BLOOD COUNT 4.02 X10'6 (4.20-5.60); RED CELL DISTRIBUTION WIDTH 14.6 % (11.5-14.5); WHITE BLOOD COUNT 8.8 X10'3 (4.5-11.0)
[2024-02-12 10:18] LABS: APTT 27 SECONDS (22-32); PROTHROMBIN TIME 11.2 SECONDS (9.0-12.0)
[2024-02-12 10:22] LABS: ALANINE AMINOTRANSFERASE 47 U/L (12-78); ALBUMIN 3.3 G/DL (3.4-5.0); ALBUMIN/GLOBULIN RATIO 0.9 (1.1-1.5); ALKALINE PHOSPHATASE 75 IU/L (46-116); ANION GAP 12 (8-16); ASPARTATE AMINO TRANSFERASE 34 U/L (10-37); BILIRUBIN,TOTAL 0.3 MG/DL (0.1-1.0); BLOOD UREA NITROGEN 20 MG/DL (7-18); BUN/CREATININE RATIO 22.5 (10.0-20.0); CALCIUM 8.8 MG/DL (8.5-10.1); CHLORIDE 100 MMOL/L (99-107); CREATININE 0.89 MG/DL (0.40-0.90); GLUCOSE 124 MG/DL (70-104); POTASSIUM 4.2 MMOL/L (3.5-5.1); SODIUM 139 MMOL/L (135-145); TOTAL CARBON DIOXIDE 27.5 MMOL/L (24-32); TOTAL PROTEIN 6.9 G/DL (6.4-8.2); eCRCL 52 ML/MIN; eGFR 61 ML/MIN
[2024-02-12 18:00] VITALS: BP 160/80; PULSE 74; RESP 18; TEMP 97.7; O2SAT 96
[2024-02-12 20:00] VITALS: RESP 18; O2SAT 96
[2024-02-12 22:00] VITALS: BP 157/73; PULSE 75; RESP 18; TEMP 98.2; O2SAT 96
[2024-02-13 06:16] VITALS: BP 120/57; PULSE 65; RESP 22; TEMP 97.5; O2SAT 93
[2024-02-13 07:08] LABS: BASOPHILS % (AUTO) 0.6 % (0-1); EOSINOPHILS # (AUTO) 0.2 X10'3 (0-0.9); EOSINOPHILS % (AUTO) 2.4 % (0-6); HEMATOCRIT 37.2 % (35.0-45.0); HEMOGLOBIN 12.4 g/dl (12.0-16.0); LYMPHOCYTES # (AUTO) 1.3 X10'3 (1.1-4.8); LYMPHOCYTES % (AUTO) 16.4 % (21-51); MEAN CORPUSCULAR HEMOGLOBIN 31.9 PG (27.0-31.0); MEAN CORPUSCULAR HGB CONC 33.4 g/dL (33.0-36.5); MEAN CORPUSCULAR VOLUME 95.3 FL (78-98); MEAN PLATELET VOLUME 8.8 FL (7.4-10.4); MONOCYTES # (AUTO) 0.6 X10'3 (0-0.9); MONOCYTES % (AUTO) 7.9 % (2-12); NEUTROPHILS # (AUTO) 5.7 X10'3 (1.8-7.7); NEUTROPHILS % (AUTO) 72.7 % (42-75); PLATELET COUNT 239 X10'3 (140-440); RED CELL DISTRIBUTION WIDTH 14.7 % (11.5-14.5); WHITE BLOOD COUNT 7.8 X10'3 (4.5-11.0)
[2024-02-13 07:15] LABS: ALANINE AMINOTRANSFERASE 58 U/L (12-78); ALBUMIN 3.1 G/DL (3.4-5.0); ALBUMIN/GLOBULIN RATIO 0.9 (1.1-1.5); ALKALINE PHOSPHATASE 83 IU/L (46-116); ANION GAP 6 (8-16); ASPARTATE AMINO TRANSFERASE 48 U/L (10-37); BILIRUBIN,TOTAL 0.3 MG/DL (0.1-1.0); BLOOD UREA NITROGEN 19 MG/DL (7-18); BUN/CREATININE RATIO 20.9 (10.0-20.0); CALCIUM 8.9 MG/DL (8.5-10.1); CHLORIDE 101 MMOL/L (99-107); CREATININE 0.91 MG/DL (0.40-0.90); GLUCOSE 125 MG/DL (70-104); POTASSIUM 4.6 MMOL/L (3.5-5.1); SODIUM 137 MMOL/L (135-145); TOTAL CARBON DIOXIDE 29.9 MMOL/L (24-32); TOTAL PROTEIN 6.7 G/DL (6.4-8.2); eCRCL 51 ML/MIN; eGFR 59 ML/MIN
[2024-02-13 08:00] VITALS: RESP 16; O2SAT 97
[2024-02-13 10:00] VITALS: BP 136/68; PULSE 63; RESP 16; TEMP 98.2; O2SAT 94
[2024-02-13] MEDS: normal saline 1000ml 1,000 ML IV SCH (14:06)
[2024-02-13 18:00] VITALS: BP 135/63; PULSE 67; RESP 16; TEMP 98; O2SAT 96
[2024-02-13 20:00] VITALS: RESP 18; O2SAT 96
[2024-02-13] MEDS: levoFLOXACIN 500mg tablet PO SCH (20:05)
[2024-02-14 02:21] LABS: BASOPHILS % (AUTO) 0.5 % (0-1); EOSINOPHILS # (AUTO) 0.2 X10'3 (0-0.9); EOSINOPHILS % (AUTO) 2.5 % (0-6); HEMATOCRIT 36.7 % (35.0-45.0); HEMOGLOBIN 12.3 g/dl (12.0-16.0); LYMPHOCYTES # (AUTO) 1.6 X10'3 (1.1-4.8); MEAN CORPUSCULAR HEMOGLOBIN 31.8 PG (27.0-31.0); MEAN CORPUSCULAR HGB CONC 33.6 g/dL (33.0-36.5); MEAN CORPUSCULAR VOLUME 94.7 FL (78-98); MEAN PLATELET VOLUME 8.5 FL (7.4-10.4); MONOCYTES # (AUTO) 0.6 X10'3 (0-0.9); MONOCYTES % (AUTO) 6.9 % (2-12); NEUTROPHILS # (AUTO) 6.8 X10'3 (1.8-7.7); NEUTROPHILS % (AUTO) 73.1 % (42-75); PLATELET COUNT 279 X10'3 (140-440); RED BLOOD COUNT 3.87 X10'6 (4.20-5.60); RED CELL DISTRIBUTION WIDTH 14.2 % (11.5-14.5); WHITE BLOOD COUNT 9.3 X10'3 (4.5-11.0)
[2024-02-14 03:26] LABS: ALANINE AMINOTRANSFERASE 51 U/L (12-78); ALBUMIN 3.3 G/DL (3.4-5.0); ALBUMIN/GLOBULIN RATIO 0.9 (1.1-1.5); ALKALINE PHOSPHATASE 87 IU/L (46-116); ANION GAP 10 (8-16); ASPARTATE AMINO TRANSFERASE 29 U/L (10-37); BILIRUBIN,TOTAL 0.3 MG/DL (0.1-1.0); BLOOD UREA NITROGEN 26 MG/DL (7-18); BUN/CREATININE RATIO 23.2 (10.0-20.0); CALCIUM 9.4 MG/DL (8.5-10.1); CHLORIDE 98 MMOL/L (99-107); CREATININE 1.12 MG/DL (0.40-0.90); GLUCOSE 133 MG/DL (70-104); POTASSIUM 4.6 MMOL/L (3.5-5.1); SODIUM 136 MMOL/L (135-145); TOTAL CARBON DIOXIDE 27.9 MMOL/L (24-32); TOTAL PROTEIN 6.8 G/DL (6.4-8.2); eCRCL 41 ML/MIN; eGFR 46 ML/MIN
[2024-02-14 06:00] VITALS: BP 114/57; PULSE 59; RESP 15; TEMP 97.1; O2SAT 95
[2024-02-14] MEDS: pantoprazole 40mg Tablet.DR PO SCH (07:58)
[2024-02-14] MEDS: sulfamethoxazole/trimethoprim DS (800/160mg) tablet PO SCH (08:03)
[2024-02-14 10:00] VITALS: BP 115/57; PULSE 69; RESP 18; TEMP 96.9; O2SAT 94
[2024-02-14] MEDS: LORazepam 0.5 MG tablet PO PRN (10:15)
[2024-02-14 18:00] VITALS: BP 138/68; PULSE 79; RESP 18; TEMP 98.6; O2SAT 95
[2024-02-14] MEDS: haloperidol lactate 5mg/ml inj IM ONE (22:08)
[2024-02-15 06:00] VITALS: BP 119/63; PULSE 61; RESP 16; TEMP 97.6; O2SAT 95
[2024-02-15 06:09] LABS: BASOPHILS # (AUTO) 0.1 X10'3 (0-0.2); BASOPHILS % (AUTO) 0.7 % (0-1); EOSINOPHILS # (AUTO) 0.2 X10'3 (0-0.9); EOSINOPHILS % (AUTO) 2.1 % (0-6); HEMATOCRIT 36.4 % (35.0-45.0); LYMPHOCYTES # (AUTO) 1.3 X10'3 (1.1-4.8); LYMPHOCYTES % (AUTO) 16.6 % (21-51); MEAN CORPUSCULAR HEMOGLOBIN 31.1 PG (27.0-31.0); MEAN CORPUSCULAR HGB CONC 32.9 g/dL (33.0-36.5); MEAN CORPUSCULAR VOLUME 94.5 FL (78-98); MEAN PLATELET VOLUME 8.7 FL (7.4-10.4); MONOCYTES # (AUTO) 0.5 X10'3 (0-0.9); MONOCYTES % (AUTO) 6.8 % (2-12); NEUTROPHILS # (AUTO) 5.9 X10'3 (1.8-7.7); NEUTROPHILS % (AUTO) 73.8 % (42-75); PLATELET COUNT 253 X10'3 (140-440); RED BLOOD COUNT 3.86 X10'6 (4.20-5.60); RED CELL DISTRIBUTION WIDTH 14.6 % (11.5-14.5)
[2024-02-15 06:20] LABS: ALANINE AMINOTRANSFERASE 50 U/L (12-78); ALBUMIN 3.1 G/DL (3.4-5.0); ALBUMIN/GLOBULIN RATIO 0.9 (1.1-1.5); ALKALINE PHOSPHATASE 81 IU/L (46-116); ANION GAP 9 (8-16); ASPARTATE AMINO TRANSFERASE 39 U/L (10-37); BILIRUBIN,TOTAL 0.4 MG/DL (0.1-1.0); BLOOD UREA NITROGEN 30 MG/DL (7-18); BUN/CREATININE RATIO 23.6 (10.0-20.0); CALCIUM 9.4 MG/DL (8.5-10.1); CHLORIDE 100 MMOL/L (99-107); CREATININE 1.27 MG/DL (0.40-0.90); GLUCOSE 162 MG/DL (70-104); SODIUM 137 MMOL/L (135-145); TOTAL CARBON DIOXIDE 27.8 MMOL/L (24-32); TOTAL PROTEIN 6.5 G/DL (6.4-8.2); eCRCL 36 ML/MIN; eGFR 40 ML/MIN
[2024-02-15 06:28] LABS: POTASSIUM 4.7 MMOL/L (3.5-5.1)
[2024-02-15 08:00] VITALS: RESP 16; O2SAT 95
[2024-02-15] MEDS: CefTRIAXone/D5W-Rocephin 1gm 50 ML IV SCH (09:15)
[2024-02-15 10:30] VITALS: BP 131/63; PULSE 86; RESP 22; TEMP 98.1; O2SAT 95
[2024-02-15] MEDS ORDERED: levoFLOXACIN 250mg tablet PO SCH (11:00)
[2024-02-15 20:00] VITALS: BP 126/76; PULSE 107; RESP 15; TEMP 98.3; O2SAT 96
[2024-02-15] MEDS: polyethylene glycol 3350 17gm powd pack PO PRN (20:23)
[2024-02-16 05:50] LABS: BASOPHILS % (AUTO) 0.4 % (0-1); EOSINOPHILS # (AUTO) 0.1 X10'3 (0-0.9); EOSINOPHILS % (AUTO) 1.4 % (0-6); HEMATOCRIT 38.8 % (35.0-45.0); HEMOGLOBIN 12.8 g/dl (12.0-16.0); LYMPHOCYTES # (AUTO) 1.3 X10'3 (1.1-4.8); LYMPHOCYTES % (AUTO) 13.3 % (21-51); MEAN CORPUSCULAR HEMOGLOBIN 31.3 PG (27.0-31.0); MEAN CORPUSCULAR HGB CONC 33.1 g/dL (33.0-36.5); MEAN CORPUSCULAR VOLUME 94.7 FL (78-98); MEAN PLATELET VOLUME 8.7 FL (7.4-10.4); MONOCYTES # (AUTO) 0.7 X10'3 (0-0.9); MONOCYTES % (AUTO) 7.2 % (2-12); NEUTROPHILS # (AUTO) 7.6 X10'3 (1.8-7.7); NEUTROPHILS % (AUTO) 77.7 % (42-75); PLATELET COUNT 288 X10'3 (140-440); RED CELL DISTRIBUTION WIDTH 14.4 % (11.5-14.5); WHITE BLOOD COUNT 9.8 X10'3 (4.5-11.0)
[2024-02-16 06:00] VITALS: BP 170/82; PULSE 95; RESP 16; TEMP 98; O2SAT 98
[2024-02-16 06:29] LABS: ALANINE AMINOTRANSFERASE 46 U/L (12-78); ALBUMIN 3.3 G/DL (3.4-5.0); ALBUMIN/GLOBULIN RATIO 0.9 (1.1-1.5); ALKALINE PHOSPHATASE 90 IU/L (46-116); ANION GAP 13 (8-16); ASPARTATE AMINO TRANSFERASE 20 U/L (10-37); BILIRUBIN,TOTAL 0.3 MG/DL (0.1-1.0); BLOOD UREA NITROGEN 29 MG/DL (7-18); BUN/CREATININE RATIO 26.1 (10.0-20.0); CALCIUM 9.5 MG/DL (8.5-10.1); CHLORIDE 101 MMOL/L (99-107); CREATININE 1.11 MG/DL (0.40-0.90); GLUCOSE 189 MG/DL (70-104); POTASSIUM 4.2 MMOL/L (3.5-5.1); SODIUM 140 MMOL/L (135-145); TOTAL CARBON DIOXIDE 26.2 MMOL/L (24-32); TOTAL PROTEIN 7.1 G/DL (6.4-8.2); eCRCL 42 ML/MIN; eGFR 47 ML/MIN
[2024-02-16 07:30] VITALS: BP 137/73; PULSE 110
[2024-02-16 08:00] VITALS: RESP 16; O2SAT 95
[2024-02-16 12:46] VITALS: BP 103/60; PULSE 90; RESP 16; TEMP 97.3; O2SAT 97
[2024-02-16 18:00] VITALS: BP 129/52; PULSE 86; RESP 18; TEMP 98.2; O2SAT 99
[2024-02-16 22:00] VITALS: BP 120/63; PULSE 89; RESP 16; TEMP 98.3; O2SAT 99
[2024-02-17 07:23] LABS: BASOPHILS # (AUTO) 0.1 X10'3 (0-0.2); BASOPHILS % (AUTO) 0.9 % (0-1); EOSINOPHILS # (AUTO) 0.2 X10'3 (0-0.9); EOSINOPHILS % (AUTO) 2.5 % (0-6); HEMATOCRIT 34.7 % (35.0-45.0); HEMOGLOBIN 11.5 g/dl (12.0-16.0); LYMPHOCYTES # (AUTO) 1.4 X10'3 (1.1-4.8); LYMPHOCYTES % (AUTO) 16.1 % (21-51); MEAN CORPUSCULAR HEMOGLOBIN 31.8 PG (27.0-31.0); MEAN CORPUSCULAR HGB CONC 33.2 g/dL (33.0-36.5); MEAN CORPUSCULAR VOLUME 95.7 FL (78-98); MEAN PLATELET VOLUME 8.6 FL (7.4-10.4); MONOCYTES # (AUTO) 0.6 X10'3 (0-0.9); MONOCYTES % (AUTO) 6.4 % (2-12); NEUTROPHILS # (AUTO) 6.5 X10'3 (1.8-7.7); NEUTROPHILS % (AUTO) 74.1 % (42-75); PLATELET COUNT 232 X10'3 (140-440); RED BLOOD COUNT 3.62 X10'6 (4.20-5.60); RED CELL DISTRIBUTION WIDTH 14.6 % (11.5-14.5); WHITE BLOOD COUNT 8.7 X10'3 (4.5-11.0)
[2024-02-17 07:42] LABS: ANION GAP 7 (8-16); BLOOD UREA NITROGEN 32 MG/DL (7-18); BUN/CREATININE RATIO 29.9 (10.0-20.0); CALCIUM 8.7 MG/DL (8.5-10.1); CHLORIDE 106 MMOL/L (99-107); CREATININE 1.07 MG/DL (0.40-0.90); GLUCOSE 164 MG/DL (70-104); POTASSIUM 4.5 MMOL/L (3.5-5.1); SODIUM 139 MMOL/L (135-145); TOTAL CARBON DIOXIDE 25.7 MMOL/L (24-32); eCRCL 43 ML/MIN; eGFR 49 ML/MIN
[2024-02-17] MEDS: lactose-reduced food (Ensure Enlive) - 237ml bottle PO SCH (11:15)
[2024-02-17 18:00] VITALS: BP 140/68; PULSE 99; RESP 16; TEMP 97.5; O2SAT 97
[2024-02-17 20:20] VITALS: RESP 18; O2SAT 98
[2024-02-17] MEDS: haloperidol lactate 5mg/ml inj IM ONE (21:33)
[2024-02-17 22:00] VITALS: BP 90/50; PULSE 81; RESP 17; TEMP 97.7; O2SAT 98
[2024-02-18 08:00] VITALS: RESP 15; O2SAT 95
[2024-02-18 09:07] LABS: ALBUMIN 2.9 G/DL (3.4-5.0); ANION GAP 10 (8-16); BLOOD UREA NITROGEN 22 MG/DL (7-18); BUN/CREATININE RATIO 22.7 (10.0-20.0); CALCIUM 8.7 MG/DL (8.5-10.1); CHLORIDE 106 MMOL/L (99-107); CREATININE 0.97 MG/DL (0.40-0.90); GLUCOSE 150 MG/DL (70-104); POTASSIUM 4.1 MMOL/L (3.5-5.1); SODIUM 140 MMOL/L (135-145); eCRCL 48 ML/MIN; eGFR 55 ML/MIN
[2024-02-18 09:15] LABS: BASOPHILS % (AUTO) 0.3 % (0-1); EOSINOPHILS # (AUTO) 0.2 X10'3 (0-0.9); HEMATOCRIT 36.1 % (35.0-45.0); LYMPHOCYTES # (AUTO) 1.1 X10'3 (1.1-4.8); LYMPHOCYTES % (AUTO) 13.1 % (21-51); MEAN CORPUSCULAR HEMOGLOBIN 31.9 PG (27.0-31.0); MEAN CORPUSCULAR HGB CONC 33.2 g/dL (33.0-36.5); MEAN CORPUSCULAR VOLUME 96.3 FL (78-98); MEAN PLATELET VOLUME 8.8 FL (7.4-10.4); MONOCYTES # (AUTO) 0.5 X10'3 (0-0.9); MONOCYTES % (AUTO) 6.2 % (2-12); NEUTROPHILS # (AUTO) 6.5 X10'3 (1.8-7.7); NEUTROPHILS % (AUTO) 78.4 % (42-75); PLATELET COUNT 217 X10'3 (140-440); RED BLOOD COUNT 3.75 X10'6 (4.20-5.60); RED CELL DISTRIBUTION WIDTH 14.5 % (11.5-14.5); WHITE BLOOD COUNT 8.3 X10'3 (4.5-11.0)
[2024-02-18 10:00] VITALS: BP 124/60; PULSE 95; RESP 15; TEMP 97.8; O2SAT 95
[2024-02-18 18:00] VITALS: BP 140/84; PULSE 86; RESP 18; TEMP 97.9; O2SAT 96
[2024-02-18 20:00] VITALS: RESP 16; O2SAT 95
[2024-02-18 22:00] VITALS: BP 140/70; PULSE 100; RESP 18; TEMP 98.6; O2SAT 94
[2024-02-19 06:00] VITALS: BP 142/86; PULSE 89; RESP 18; TEMP 97.8; O2SAT 96
[2024-02-19 07:04] LABS: BASOPHILS % (AUTO) 0.3 % (0-1); EOSINOPHILS # (AUTO) 0.2 X10'3 (0-0.9); HEMATOCRIT 34.7 % (35.0-45.0); HEMOGLOBIN 11.4 g/dl (12.0-16.0); LYMPHOCYTES # (AUTO) 1.2 X10'3 (1.1-4.8); LYMPHOCYTES % (AUTO) 17.1 % (21-51); MEAN CORPUSCULAR HEMOGLOBIN 31.5 PG (27.0-31.0); MEAN CORPUSCULAR HGB CONC 32.9 g/dL (33.0-36.5); MEAN CORPUSCULAR VOLUME 95.8 FL (78-98); MEAN PLATELET VOLUME 8.5 FL (7.4-10.4); MONOCYTES # (AUTO) 0.5 X10'3 (0-0.9); MONOCYTES % (AUTO) 6.6 % (2-12); PLATELET COUNT 203 X10'3 (140-440); RED BLOOD COUNT 3.62 X10'6 (4.20-5.60); RED CELL DISTRIBUTION WIDTH 14.3 % (11.5-14.5); WHITE BLOOD COUNT 6.9 X10'3 (4.5-11.0)
[2024-02-19 07:24] LABS: ALBUMIN 2.8 G/DL (3.4-5.0); ANION GAP 9 (8-16); BLOOD UREA NITROGEN 25 MG/DL (7-18); BUN/CREATININE RATIO 26.6 (10.0-20.0); CALCIUM 8.6 MG/DL (8.5-10.1); CHLORIDE 107 MMOL/L (99-107); CREATININE 0.94 MG/DL (0.40-0.90); GLUCOSE 145 MG/DL (70-104); POTASSIUM 4.3 MMOL/L (3.5-5.1); SODIUM 140 MMOL/L (135-145); TOTAL CARBON DIOXIDE 23.6 MMOL/L (24-32); eCRCL 49 ML/MIN; eGFR 57 ML/MIN
[2024-02-19 08:00] VITALS: RESP 18; O2SAT 96
[2024-02-19] MEDS: normal saline 1000ml 1,000 ML IV SCH (13:55)
[2024-02-19 18:00] VITALS: BP 164/87; PULSE 60; RESP 15; TEMP 97.4; O2SAT 99
[2024-02-19] MEDS: OLANZapine 2.5MG tablet PO SCH (19:39)
[2024-02-19 22:00] VITALS: BP 131/68; PULSE 103; RESP 16; TEMP 98; O2SAT 97
[2024-02-20 05:38] VITALS: BP 148/88; PULSE 96; RESP 18; TEMP 97.7; O2SAT 97
[2024-02-20 06:00] VITALS: BP 148/88; PULSE 96; RESP 18; TEMP 97.7; O2SAT 97
[2024-02-20 07:30] VITALS: RESP 16
[2024-02-20 10:00] VITALS: BP 136/85; PULSE 85; RESP 18; TEMP 97.1; O2SAT 94
[2024-02-20] MEDS: OLANZapine 2.5MG tablet PO STA (10:13)
[2024-02-20 17:36] VITALS: BP 172/83; PULSE 100; RESP 16
[2024-02-20] MEDS: haloperidol lactate 5mg/ml inj IM ONE (19:21)
[2024-02-20] MEDS: OLANZapine 2.5MG tablet PO SCH (20:00)
[2024-02-20 20:06] VITALS: RESP 16; O2SAT 98
[2024-02-21] VITALS (10 sets, daily range): BP systolic 135–178; BP diastolic 65–107; PULSE 116–145; RESP 20–32; TEMP 98.1–99.8; O2SAT 88–98
[2024-02-21] MEDS ORDERED: furosemide 40mg/4ml inj IV ONE (21:40)
[2024-02-21 22:11] LABS: ABG HCO3 18.9 mmol/L (21.0-28.0); ABG OXYGEN SATURATION 89.9 % (94.0-98.0); ABG PCO2 (T) 21.7 mmHg (32.0-45.0); ABG PH (T) 7.562 (7.350-7.450); ABG PO2 (T) 54.1 mmHg (83.0-108.0); ALLEN'S TEST Modified; FCOHb 1.4 % (0.5-1.5); FHHb 9.9 % (0.0-5.0); FMetHb 0.3 % (0.0-1.5); FO2Hb 88.4 % (94.0-98.0); PATIENT TEMPERATURE 37.6; TOTAL HEMOGLOBIN 13.6 G/dl (12.0-16.0)
[2024-02-21 22:21] LABS: BASOPHILS % (AUTO) 0.2 % (0-1); EOSINOPHILS % (AUTO) 0 % (0-6); HEMOGLOBIN 13.3 g/dl (12.0-16.0); LYMPHOCYTES # (AUTO) 0.7 X10'3 (1.1-4.8); LYMPHOCYTES % (AUTO) 3.6 % (21-51); MEAN CORPUSCULAR HEMOGLOBIN 30.9 PG (27.0-31.0); MEAN CORPUSCULAR HGB CONC 32.4 g/dL (33.0-36.5); MEAN CORPUSCULAR VOLUME 95.2 FL (78-98); MEAN PLATELET VOLUME 8.8 FL (7.4-10.4); MONOCYTES # (AUTO) 0.7 X10'3 (0-0.9); MONOCYTES % (AUTO) 3.6 % (2-12); NEUTROPHILS # (AUTO) 17.1 X10'3 (1.8-7.7); NEUTROPHILS % (AUTO) 92.6 % (42-75); PLATELET COUNT 327 X10'3 (140-440); RED CELL DISTRIBUTION WIDTH 14.5 % (11.5-14.5); WHITE BLOOD COUNT 18.4 X10'3 (4.5-11.0)
[2024-02-21] MEDS: ipratropium/albuterol 3ml nebule NEB PRN (22:25)
[2024-02-21 22:33] LABS: ALANINE AMINOTRANSFERASE 30 U/L (12-78); ALBUMIN 2.9 G/DL (3.4-5.0); ALBUMIN/GLOBULIN RATIO 0.7 (1.1-1.5); ALKALINE PHOSPHATASE 95 IU/L (46-116); ANION GAP 14 (8-16); ASPARTATE AMINO TRANSFERASE 50 U/L (10-37); BILIRUBIN,TOTAL 0.7 MG/DL (0.1-1.0); BLOOD UREA NITROGEN 23 MG/DL (7-18); BUN/CREATININE RATIO 20.9 (10.0-20.0); CALCIUM 8.7 MG/DL (8.5-10.1); CHLORIDE 105 MMOL/L (99-107); GLUCOSE 301 MG/DL (70-104); POTASSIUM 4.4 MMOL/L (3.5-5.1); SODIUM 138 MMOL/L (135-145); TOTAL PROTEIN 7.1 G/DL (6.4-8.2); eCRCL 42 ML/MIN; eGFR 47 ML/MIN
[2024-02-21 22:44] LABS: PRO BRAIN NATRIURETIC PEPTIDE > 30000 PG/ML (0-450)
[2024-02-21] MEDS: magnesium sulf-water 2g/50mL 50 ML IV ONE (23:00)
[2024-02-21] MEDS: metoprolol tartrate 1mg/ml inj IV ONE (23:05)
[2024-02-22] VITALS (17 sets, daily range): BP systolic 118–139; BP diastolic 70–85; PULSE 62–128; RESP 16–46; TEMP 97.7–98.6; O2SAT 89–97
[2024-02-22 00:05] LABS: MAGNESIUM 1.8 MG/DL (1.5-2.4)
[2024-02-22] MEDS: normal saline 1000ml 1,000 ML IV ONE (01:05)
[2024-02-22] MEDS: piperacillin/tazo 4.5gm/100ml 100 ML IV SCH (03:21)
[2024-02-22] MEDS: ipratropium 0.5 MG/2.5ML nebule IH ONE (06:00)
[2024-02-22] MEDS ORDERED: acetaminophen 1,000mg/100ml IV 100 ML IV PRN (06:35)
[2024-02-22 06:43] LABS: ABG BASE EXCESS -3.4 mmol/L (-2.0-3.0); ABG OXYGEN SATURATION 94.2 % (94.0-98.0); ABG PCO2 (T) 28.3 mmHg (32.0-45.0); ABG PH (T) 7.449 (7.350-7.450); ABG PO2 (T) 75.5 mmHg (83.0-108.0); ALLEN'S TEST POSITIVE; FHHb 5.7 % (0.0-5.0); FLOW 8 L/min; FMetHb 0.3 % (0.0-1.5); MODE MASK - SIMPLE; PATIENT TEMPERATURE 37.8; TOTAL HEMOGLOBIN 13.2 G/dl (12.0-16.0)
[2024-02-22] MEDS: normal saline 1000ml 1,000 ML IVB ONE (07:04)
[2024-02-22 07:15] LABS: BASOPHILS % (AUTO) 0.2 % (0-1); EOSINOPHILS % (AUTO) 0 % (0-6); HEMATOCRIT 36.7 % (35.0-45.0); HEMOGLOBIN 11.7 g/dl (12.0-16.0); LYMPHOCYTES # (AUTO) 0.6 X10'3 (1.1-4.8); LYMPHOCYTES % (AUTO) 3.5 % (21-51); MEAN CORPUSCULAR HEMOGLOBIN 30.6 PG (27.0-31.0); MEAN CORPUSCULAR VOLUME 95.6 FL (78-98); MEAN PLATELET VOLUME 8.9 FL (7.4-10.4); MONOCYTES # (AUTO) 0.8 X10'3 (0-0.9); MONOCYTES % (AUTO) 4.7 % (2-12); NEUTROPHILS # (AUTO) 15.5 X10'3 (1.8-7.7); NEUTROPHILS % (AUTO) 91.6 % (42-75); PLATELET COUNT 250 X10'3 (140-440); RED BLOOD COUNT 3.83 X10'6 (4.20-5.60); RED CELL DISTRIBUTION WIDTH 14.8 % (11.5-14.5)
[2024-02-22 07:37] LABS: ALBUMIN 2.5 G/DL (3.4-5.0); ANION GAP 14 (8-16); BLOOD UREA NITROGEN 28 MG/DL (7-18); BUN/CREATININE RATIO 25.5 (10.0-20.0); CALCIUM 7.9 MG/DL (8.5-10.1); CHLORIDE 110 MMOL/L (99-107); GLUCOSE 288 MG/DL (70-104); POTASSIUM 3.9 MMOL/L (3.5-5.1); SODIUM 144 MMOL/L (135-145); eCRCL 42 ML/MIN; eGFR 47 ML/MIN
[2024-02-22 07:39] LABS: PRO BRAIN NATRIURETIC PEPTIDE > 30000 PG/ML (0-450)
[2024-02-22] MEDS: metoprolol succinate 25mg (24-HOUR) SR. Tablet PO SCH (08:00)
[2024-02-22] MEDS: furosemide 10 MG/1 ML 10ml inj IV ONE (09:57)
[2024-02-22] MEDS ORDERED: morphine 2 MG/ML inj. syringe IV ONE (10:15)
[2024-02-22 12:16] LABS: ABG BASE EXCESS -5.3 mmol/L (-2.0-3.0); ABG HCO3 18.5 mmol/L (21.0-28.0); ABG OXYGEN SATURATION 97.3 % (94.0-98.0); ABG PCO2 (T) 31.1 mmHg (32.0-45.0); ABG PH (T) 7.392 (7.350-7.450); ALLEN'S TEST POSITIVE; FCOHb 0.7 % (0.5-1.5); FHHb 2.7 % (0.0-5.0); FMetHb 0.3 % (0.0-1.5); FO2Hb 96.3 % (94.0-98.0); MODE MASK - BIPAP; PATIENT TEMPERATURE 37.1; PEEP 5 cm H2O; RESPIRATORY RATE 10 b/min; TOTAL HEMOGLOBIN 13.6 G/dl (12.0-16.0)
[2024-02-22] MEDS: furosemide 20 MG/2 ML vial IV SCH (22:45)
[2024-02-23] VITALS (12 sets, daily range): BP systolic 112–146; BP diastolic 80–90; PULSE 12–122; RESP 18–28; TEMP 97–98.2; O2SAT 91–100
[2024-02-23] MEDS ORDERED: enoxaparin 60mg/0.6ml syringe SUBCUT SCH (08:00)
[2024-02-23 09:11] LABS: BASOPHILS % (AUTO) 0.1 % (0-1); EOSINOPHILS % (AUTO) 0.1 % (0-6); HEMATOCRIT 33.6 % (35.0-45.0); LYMPHOCYTES # (AUTO) 0.8 X10'3 (1.1-4.8); LYMPHOCYTES % (AUTO) 5.5 % (21-51); MEAN CORPUSCULAR HEMOGLOBIN 31.5 PG (27.0-31.0); MEAN CORPUSCULAR HGB CONC 32.6 g/dL (33.0-36.5); MEAN CORPUSCULAR VOLUME 96.5 FL (78-98); MEAN PLATELET VOLUME 9.1 FL (7.4-10.4); MONOCYTES # (AUTO) 0.6 X10'3 (0-0.9); MONOCYTES % (AUTO) 4.4 % (2-12); NEUTROPHILS # (AUTO) 12.4 X10'3 (1.8-7.7); NEUTROPHILS % (AUTO) 89.9 % (42-75); PLATELET COUNT 204 X10'3 (140-440); RED BLOOD COUNT 3.48 X10'6 (4.20-5.60); RED CELL DISTRIBUTION WIDTH 14.9 % (11.5-14.5); WHITE BLOOD COUNT 13.8 X10'3 (4.5-11.0)
[2024-02-23 09:17] LABS: ALBUMIN 2.7 G/DL (3.4-5.0); ANION GAP 11 (8-16); BLOOD UREA NITROGEN 36 MG/DL (7-18); BUN/CREATININE RATIO 28.8 (10.0-20.0); CALCIUM 8.3 MG/DL (8.5-10.1); CHLORIDE 110 MMOL/L (99-107); CREATININE 1.25 MG/DL (0.40-0.90); GLUCOSE 188 MG/DL (70-104); POTASSIUM 3.3 MMOL/L (3.5-5.1); SODIUM 145 MMOL/L (135-145); TOTAL CARBON DIOXIDE 24.2 MMOL/L (24-32); eCRCL 37 ML/MIN; eGFR 41 ML/MIN
[2024-02-23] MEDS: aspirin 81mg tab.chew PO ONE (12:30)
[2024-02-23] MEDS ORDERED: enoxaparin 100mg/ml syringe SUBCUT SCH (12:30)
[2024-02-23] MEDS ORDERED: magnesium Cl slow-release 64mg tablet PO PRN (13:00)
[2024-02-23] MEDS ORDERED: potassium Cl 20 mEq SR tablet PO PRN (13:00)
[2024-02-23] MEDS ORDERED: magnesium sulf-water 2g/50mL 50 ML IV PRN (13:00)
[2024-02-23] MEDS ORDERED: magnesium sulf-water 4G/100mL 100 ML IV PRN (13:00)
[2024-02-23 13:24] LABS: CHOL/HDL RATIO 3.1 (0.00-4.99); CHOLESTEROL 142 MG/DL (0-200); HDL CHOLESTEROL 46 MG/DL (35-60); LDL CHOLESTEROL 81 MG/DL (50-100); TRIGLYCERIDES 108 MG/DL (20-135)
[2024-02-23] MEDS: potassium Cl 40MEQ/1/2NS 520ml 520 ML IV PRN (16:50)
[2024-02-23] MEDS ORDERED: K and/or MAG REPLACEMENT MC SCH (20:00)
[2024-02-23] MEDS: apixaban 5mg tablet PO SCH (20:50)
[2024-02-23] MEDS: nystatin 15 GM powder TP SCH (20:51)
[2024-02-24] VITALS (14 sets, daily range): BP systolic 122–145; BP diastolic 71–88; PULSE 84–108; RESP 16–36; TEMP 97–99.1; O2SAT 92–100
[2024-02-24 06:07] LABS: BASOPHILS % (AUTO) 0.1 % (0-1); EOSINOPHILS % (AUTO) 0.1 % (0-6); HEMATOCRIT 35.9 % (35.0-45.0); HEMOGLOBIN 11.5 g/dl (12.0-16.0); LYMPHOCYTES # (AUTO) 1.1 X10'3 (1.1-4.8); LYMPHOCYTES % (AUTO) 8.8 % (21-51); MEAN CORPUSCULAR HEMOGLOBIN 31.3 PG (27.0-31.0); MEAN CORPUSCULAR VOLUME 97.6 FL (78-98); MEAN PLATELET VOLUME 9.4 FL (7.4-10.4); MONOCYTES # (AUTO) 0.8 X10'3 (0-0.9); NEUTROPHILS # (AUTO) 10.9 X10'3 (1.8-7.7); PLATELET COUNT 243 X10'3 (140-440); RED BLOOD COUNT 3.68 X10'6 (4.20-5.60); RED CELL DISTRIBUTION WIDTH 15.1 % (11.5-14.5); WHITE BLOOD COUNT 12.8 X10'3 (4.5-11.0)
[2024-02-24 06:20] LABS: ALBUMIN 2.5 G/DL (3.4-5.0); ANION GAP 11 (8-16); BLOOD UREA NITROGEN 39 MG/DL (7-18); BUN/CREATININE RATIO 35.1 (10.0-20.0); CALCIUM 8.4 MG/DL (8.5-10.1); CHLORIDE 110 MMOL/L (99-107); CREATININE 1.11 MG/DL (0.40-0.90); GLUCOSE 185 MG/DL (70-104); POTASSIUM 3.4 MMOL/L (3.5-5.1); SODIUM 146 MMOL/L (135-145); TOTAL CARBON DIOXIDE 25.3 MMOL/L (24-32); eCRCL 42 ML/MIN; eGFR 47 ML/MIN
[2024-02-24] MEDS ORDERED: enoxaparin 60mg/0.6ml syringe SUBCUT SCH (08:00)
[2024-02-24] MEDS ORDERED: enoxaparin 30mg/0.3ml syringe SUBCUT SCH (08:00)
[2024-02-24] MEDS: aspirin 81mg, enteric-coated 1 TAB TABLET.DR PO SCH (08:55)
[2024-02-24] MEDS: potassium Cl 20 mEq SR tablet PO PRN (08:56)
[2024-02-24] MEDS: vancomycin/NS 1 GM ADD-VANTAGE 250 ML IV SCH (09:13)
[2024-02-24 09:35] LABS: APTT 26 SECONDS (22-32); INR 1.3 INR; PROTHROMBIN TIME 13.8 SECONDS (9.0-12.0)
[2024-02-24 12:35] LABS: ABG BASE EXCESS 0.3 mmol/L (-2.0-3.0); ABG HCO3 23.7 mmol/L (21.0-28.0); ABG OXYGEN SATURATION 96.3 % (94.0-98.0); ABG PCO2 (T) 34.6 mmHg (32.0-45.0); ABG PH (T) 7.455 (7.350-7.450); ABG PO2 (T) 90.8 mmHg (83.0-108.0); ALLEN'S TEST Modified; FCOHb 0.7 % (0.5-1.5); FHHb 3.7 % (0.0-5.0); FLOW 25 L/min; FMetHb 0.3 % (0.0-1.5); FO2Hb 95.3 % (94.0-98.0); MODE HIGH FLOW; PATIENT TEMPERATURE 37.3; TOTAL HEMOGLOBIN 11.2 G/dl (12.0-16.0)
[2024-02-24] MEDS ORDERED: ampicillin inj 1 GM in normal saline 100ml IV soln 100 ML IV SCH (20:00)
[2024-02-25] VITALS (16 sets, daily range): BP systolic 131–140; BP diastolic 72–99; PULSE 89–117; RESP 15–26; TEMP 96.8–99.5; O2SAT 84–99
[2024-02-25 08:29] LABS: BASOPHILS % (AUTO) 0.1 % (0-1); EOSINOPHILS % (AUTO) 0.1 % (0-6); HEMATOCRIT 40.9 % (35.0-45.0); HEMOGLOBIN 13.1 g/dl (12.0-16.0); LYMPHOCYTES # (AUTO) 0.7 X10'3 (1.1-4.8); LYMPHOCYTES % (AUTO) 6.4 % (21-51); MEAN CORPUSCULAR HEMOGLOBIN 31.5 PG (27.0-31.0); MEAN CORPUSCULAR HGB CONC 31.9 g/dL (33.0-36.5); MEAN CORPUSCULAR VOLUME 98.5 FL (78-98); MEAN PLATELET VOLUME 9.6 FL (7.4-10.4); MONOCYTES # (AUTO) 0.4 X10'3 (0-0.9); MONOCYTES % (AUTO) 3.4 % (2-12); NEUTROPHILS # (AUTO) 9.7 X10'3 (1.8-7.7); PLATELET COUNT 262 X10'3 (140-440); RED BLOOD COUNT 4.15 X10'6 (4.20-5.60); RED CELL DISTRIBUTION WIDTH 15.7 % (11.5-14.5); WHITE BLOOD COUNT 10.8 X10'3 (4.5-11.0)
[2024-02-25 08:36] LABS: ALBUMIN 2.7 G/DL (3.4-5.0); ANION GAP 12 (8-16); BLOOD UREA NITROGEN 53 MG/DL (7-18); BUN/CREATININE RATIO 42.4 (10.0-20.0); CALCIUM 8.9 MG/DL (8.5-10.1); CHLORIDE 113 MMOL/L (99-107); CREATININE 1.25 MG/DL (0.40-0.90); GLUCOSE 217 MG/DL (70-104); SODIUM 147 MMOL/L (135-145); TOTAL CARBON DIOXIDE 22.2 MMOL/L (24-32); eCRCL 37 ML/MIN; eGFR 41 ML/MIN
[2024-02-25 08:40] LABS: POTASSIUM 4.6 MMOL/L (3.5-5.1)
[2024-02-25] MEDS: levoFLOXACIN-Levaquin 500mg/D5 100 ML IV SCH (13:43)
[2024-02-26] VITALS (11 sets, daily range): BP systolic 129–148; BP diastolic 85–98; PULSE 98–127; RESP 18–25; TEMP 97–97.8; O2SAT 92–99
[2024-02-26] MEDS: LORazepam 2 mg/ml vial IV PRN ×2 (01:28→15:53)
[2024-02-26 07:19] LABS: BASOPHILS % (AUTO) 0 % (0-1); EOSINOPHILS % (AUTO) 0.1 % (0-6); HEMATOCRIT 35.2 % (35.0-45.0); HEMOGLOBIN 11.5 g/dl (12.0-16.0); LYMPHOCYTES # (AUTO) 0.7 X10'3 (1.1-4.8); LYMPHOCYTES % (AUTO) 7.9 % (21-51); MEAN CORPUSCULAR HEMOGLOBIN 31.3 PG (27.0-31.0); MEAN CORPUSCULAR HGB CONC 32.5 g/dL (33.0-36.5); MEAN CORPUSCULAR VOLUME 96.4 FL (78-98); MEAN PLATELET VOLUME 9.4 FL (7.4-10.4); MONOCYTES # (AUTO) 0.3 X10'3 (0-0.9); MONOCYTES % (AUTO) 3.5 % (2-12); NEUTROPHILS # (AUTO) 8.1 X10'3 (1.8-7.7); NEUTROPHILS % (AUTO) 88.5 % (42-75); PLATELET COUNT 291 X10'3 (140-440); RED BLOOD COUNT 3.66 X10'6 (4.20-5.60); RED CELL DISTRIBUTION WIDTH 15.3 % (11.5-14.5); WHITE BLOOD COUNT 9.1 X10'3 (4.5-11.0)
[2024-02-26 07:37] LABS: ALBUMIN 2.6 G/DL (3.4-5.0); ANION GAP 14 (8-16); BLOOD UREA NITROGEN 58 MG/DL (7-18); CALCIUM 8.7 MG/DL (8.5-10.1); CHLORIDE 115 MMOL/L (99-107); CREATININE 1.26 MG/DL (0.40-0.90); GLUCOSE 218 MG/DL (70-104); POTASSIUM 3.8 MMOL/L (3.5-5.1); SODIUM 152 MMOL/L (135-145); TOTAL CARBON DIOXIDE 23.2 MMOL/L (24-32); eCRCL 37 ML/MIN; eGFR 41 ML/MIN
[2024-02-26 14:28] LABS: PRO BRAIN NATRIURETIC PEPTIDE > 30000 PG/ML (0-450)
[2024-02-26] MEDS ORDERED: dextrose 5%-water 1,000 ML IV SCH (14:35)
[2024-02-26] MEDS ORDERED: traMADol 50MG tablet PO PRN (14:35)
[2024-02-26] MEDS ORDERED: magnesium Cl slow-release 64mg tablet PO PRN (15:35)
[2024-02-26] MEDS ORDERED: magnesium sulf-water 4G/100mL 100 ML IV PRN (15:35)
[2024-02-26] MEDS ORDERED: potassium Cl 20 mEq SR tablet PO PRN (15:35)
[2024-02-26] MEDS ORDERED: glucagon, human recombinant 1mg kit SUBCUT PRN (15:35)
[2024-02-26] MEDS ORDERED: DEXTROSE 15 GM of carb/4 tabs (each vial/BOTTLE has 4 tablets) PO PRN ×2 (15:35)
[2024-02-26] MEDS ORDERED: dextrose 50%-water 50ml dispensing syringe IV PRN ×2 (15:35)
[2024-02-26] MEDS ORDERED: magnesium sulf-water 2g/50mL 50 ML IV PRN (15:35)
[2024-02-26] MEDS: vancomycin/NS 1 GM ADD-VANTAGE 250 ML IV SCH (16:17)
[2024-02-26] MEDS: INSULIN LISPRO 100 UNIT/ML INSULN.PEN MULTI-DOSE SQ SCH (18:00)
[2024-02-26] MEDS: insulin glargine (Lantus) pen - multi-dose SQ SCH (20:41)
[2024-02-26] MEDS: K and/or MAG REPLACEMENT MC SCH (20:55)
[2024-02-27] VITALS (9 sets, daily range): BP systolic 130–150; BP diastolic 77–110; PULSE 85–107; RESP 16–30; TEMP 97–98.7; O2SAT 90–100
[2024-02-27 08:13] LABS: BASOPHILS % (AUTO) 0.1 % (0-1); EOSINOPHILS % (AUTO) 0.2 % (0-6); HEMATOCRIT 37.3 % (35.0-45.0); HEMOGLOBIN 11.9 g/dl (12.0-16.0); LYMPHOCYTES # (AUTO) 0.7 X10'3 (1.1-4.8); LYMPHOCYTES % (AUTO) 6.4 % (21-51); MEAN CORPUSCULAR HEMOGLOBIN 30.9 PG (27.0-31.0); MEAN CORPUSCULAR HGB CONC 31.8 g/dL (33.0-36.5); MEAN CORPUSCULAR VOLUME 97.2 FL (78-98); MEAN PLATELET VOLUME 9.7 FL (7.4-10.4); MONOCYTES # (AUTO) 0.4 X10'3 (0-0.9); MONOCYTES % (AUTO) 3.9 % (2-12); NEUTROPHILS # (AUTO) 10.4 X10'3 (1.8-7.7); NEUTROPHILS % (AUTO) 89.4 % (42-75); PLATELET COUNT 355 X10'3 (140-440); RED BLOOD COUNT 3.84 X10'6 (4.20-5.60); RED CELL DISTRIBUTION WIDTH 15.2 % (11.5-14.5); WHITE BLOOD COUNT 11.6 X10'3 (4.5-11.0)
[2024-02-27 08:29] LABS: ALBUMIN 2.7 G/DL (3.4-5.0); ANION GAP 13 (8-16); BLOOD UREA NITROGEN 61 MG/DL (7-18); BUN/CREATININE RATIO 48.4 (10.0-20.0); CALCIUM 8.6 MG/DL (8.5-10.1); CREATININE 1.26 MG/DL (0.40-0.90); GLUCOSE 258 MG/DL (70-104); POTASSIUM 3.9 MMOL/L (3.5-5.1); SODIUM 153 MMOL/L (135-145); eCRCL 37 ML/MIN; eGFR 41 ML/MIN
[2024-02-27] MEDS ORDERED: VANCOMYCIN LEVEL IV ONE (08:30)
[2024-02-27 08:49] LABS: CHLORIDE 116 MMOL/L (99-107)
[2024-02-27] MEDS: lisinopril 5mg tablet PO SCH (09:20)
[2024-02-27] MEDS: dextrose 5%-water 1,000 ML IV SCH (09:20)
[2024-02-27] MEDS: linezolid 600mg tablet PO SCH (20:07)
[2024-02-28] VITALS (10 sets, daily range): BP systolic 125–143; BP diastolic 75–98; PULSE 84–102; RESP 18–22; TEMP 97.4–98.1; O2SAT 94–99
[2024-02-28 07:03] LABS: BASOPHILS % (AUTO) 0.1 % (0-1); EOSINOPHILS # (AUTO) 0.1 X10'3 (0-0.9); EOSINOPHILS % (AUTO) 0.5 % (0-6); HEMOGLOBIN 12.9 g/dl (12.0-16.0); LYMPHOCYTES # (AUTO) 1.1 X10'3 (1.1-4.8); LYMPHOCYTES % (AUTO) 8.1 % (21-51); MEAN CORPUSCULAR HGB CONC 31.6 g/dL (33.0-36.5); MEAN CORPUSCULAR VOLUME 98.3 FL (78-98); MONOCYTES # (AUTO) 0.7 X10'3 (0-0.9); MONOCYTES % (AUTO) 4.9 % (2-12); NEUTROPHILS # (AUTO) 11.7 X10'3 (1.8-7.7); NEUTROPHILS % (AUTO) 86.4 % (42-75); PLATELET COUNT 342 X10'3 (140-440); RED BLOOD COUNT 4.17 X10'6 (4.20-5.60); RED CELL DISTRIBUTION WIDTH 15.8 % (11.5-14.5); WHITE BLOOD COUNT 13.6 X10'3 (4.5-11.0)
[2024-02-28 07:07] LABS: ALBUMIN 2.7 G/DL (3.4-5.0); ANION GAP 13 (8-16); BLOOD UREA NITROGEN 53 MG/DL (7-18); BUN/CREATININE RATIO 46.5 (10.0-20.0); CALCIUM 8.6 MG/DL (8.5-10.1); CHLORIDE 115 MMOL/L (99-107); CREATININE 1.14 MG/DL (0.40-0.90); GLUCOSE 190 MG/DL (70-104); MAGNESIUM 2.2 MG/DL (1.5-2.4); POTASSIUM 3.4 MMOL/L (3.5-5.1); SODIUM 152 MMOL/L (135-145); TOTAL CARBON DIOXIDE 24.5 MMOL/L (24-32); eCRCL 40 ML/MIN; eGFR 46 ML/MIN
[2024-02-28] MEDS: OLANZAPINE 5 MG TABLET PO SCH (08:27)
[2024-02-28] MEDS: potassium Cl 20 mEq SR tablet PO PRN (08:28)
[2024-02-28] MEDS: vancomycin/NS 1 GM ADD-VANTAGE 250 ML IV SCH (12:05)
[2024-02-28] MEDS: levoFLOXACIN-Levaquin 500mg/D5 100 ML IV SCH (12:05)
[2024-02-28 16:48] LABS: PHOSPHORUS 3.4 MG/DL (2.3-4.5); PREALBUMIN 19.2 MG/DL (19-36); TRIGLYCERIDES 111 MG/DL (20-135)
[2024-02-28] MEDS ORDERED: Dextrose 10%-water IV solution 1,000 ML IV PRN (17:00)
[2024-02-28] MEDS: fat emulsion 20% inj. 100 ML IV SCH (17:29)
[2024-02-28] MEDS: chromic chloride inj. 5 MCG, ZINC/COPPER/MANGANESE/SELENIUM 0.5 ML in AA 5%/CALCIUM/LYT... IV SCH (17:30)
[2024-02-28] MEDS: lactose-reduced food (Ensure Enlive) - 237ml bottle PO SCH (18:00)
[2024-02-28] MEDS: potassium Cl 40MEQ/1/2NS 520ml 520 ML IV PRN (21:51)
[2024-02-29 02:00] VITALS: BP 131/75; PULSE 86; RESP 20; TEMP 96.6; O2SAT 96
[2024-02-29] MEDS: insulin regular, human U-100 10ml vial - multi-dose SQ SCH (03:52)
[2024-02-29 05:45] LABS: BASOPHILS # (AUTO) 0.1 X10'3 (0-0.2); BASOPHILS % (AUTO) 0.7 % (0-1); EOSINOPHILS # (AUTO) 0.2 X10'3 (0-0.9); EOSINOPHILS % (AUTO) 2.3 % (0-6); HEMATOCRIT 35.9 % (35.0-45.0); HEMOGLOBIN 11.3 g/dl (12.0-16.0); LYMPHOCYTES # (AUTO) 0.5 X10'3 (1.1-4.8); LYMPHOCYTES % (AUTO) 5.8 % (21-51); MEAN CORPUSCULAR HGB CONC 31.6 g/dL (33.0-36.5); MEAN CORPUSCULAR VOLUME 98.3 FL (78-98); MEAN PLATELET VOLUME 10.3 FL (7.4-10.4); MONOCYTES # (AUTO) 0.4 X10'3 (0-0.9); MONOCYTES % (AUTO) 4.7 % (2-12); NEUTROPHILS # (AUTO) 7.9 X10'3 (1.8-7.7); NEUTROPHILS % (AUTO) 86.5 % (42-75); PLATELET COUNT 280 X10'3 (140-440); RED BLOOD COUNT 3.65 X10'6 (4.20-5.60); RED CELL DISTRIBUTION WIDTH 15.7 % (11.5-14.5); WHITE BLOOD COUNT 9.1 X10'3 (4.5-11.0)
[2024-02-29 05:46] LABS: ALANINE AMINOTRANSFERASE 102 U/L (12-78); ALBUMIN 2.3 G/DL (3.4-5.0); ALBUMIN/GLOBULIN RATIO 0.7 (1.1-1.5); ALKALINE PHOSPHATASE 96 IU/L (46-116); ANION GAP 10 (8-16); ASPARTATE AMINO TRANSFERASE 31 U/L (10-37); BILIRUBIN,TOTAL 0.6 MG/DL (0.1-1.0); BLOOD UREA NITROGEN 42 MG/DL (7-18); BUN/CREATININE RATIO 42.9 (10.0-20.0); CALCIUM 7.9 MG/DL (8.5-10.1); CHLORIDE 112 MMOL/L (99-107); CREATININE 0.98 MG/DL (0.40-0.90); GLUCOSE 329 MG/DL (70-104); PHOSPHORUS 3.2 MG/DL (2.3-4.5); POTASSIUM 3.9 MMOL/L (3.5-5.1); SODIUM 147 MMOL/L (135-145); TOTAL CARBON DIOXIDE 25.3 MMOL/L (24-32); TOTAL PROTEIN 5.5 G/DL (6.4-8.2); eCRCL 47 ML/MIN; eGFR 54 ML/MIN
[2024-02-29 06:00] VITALS: BP 150/101; PULSE 96; RESP 25; TEMP 98.3; O2SAT 99
[2024-02-29 08:00] VITALS: RESP 25; O2SAT 99
[2024-02-29] MEDS ORDERED: azithromycin/NS 500mg/250ml 250 ML IV SCH (08:00)
[2024-02-29] MEDS: levoFLOXACIN-Levaquin 250mg/D5 50 ML IV SCH (08:11)
[2024-02-29] MEDS: MVI, adult No.4 with vit. K 10 ML in dextrose 5% water 500ml 500 ML IV SCH (08:11)
[2024-02-29 09:53] VITALS: PULSE 96; RESP 26; O2SAT 100
[2024-02-29 12:02] VITALS: BP 148/99; PULSE 96; RESP 26; TEMP 97; O2SAT 97
[2024-02-29] MEDS ORDERED: VANCOMYCIN LEVEL IV ONE (14:30)
[2024-03-02] MEDS ORDERED: VANCOMYCIN LEVEL IV ONE (09:30)
== END 2024-02-29 15:10 | DRG 280 ==
LOC: ER 18:58 → INTOOBSV 02-04 03:34 → ED HOLD 02-04 03:34 → UNDOADMOB 02-04 03:34 → OBSVTOIN 02-04 03:34 → ED HOLD 02-04 05:22 → ORTHO 4S 02-04 06:55 → ED HOLD 02-04 06:55 → ORTHO 4S 02-07 21:03 → PCU 3S 02-23 14:15 → UNDODISIN 02-29 15:10
PROVIDERS: ADMIT Internal Medicine Critical Care Medicine; ATTEND Internal Medicine
PROC: B32T1ZZ Computerized Tomography (CT Scan) of Left Pulmonary Artery using Low Osmolar Contrast (ICD-10-PCS; 2024-02-05)
PROC: B3201ZZ Computerized Tomography (CT Scan) of Thoracic Aorta using Low Osmolar Contrast (ICD-10-PCS; 2024-02-05)
PROC: B32S1ZZ Computerized Tomography (CT Scan) of Right Pulmonary Artery using Low Osmolar Contrast (ICD-10-PCS; 2024-02-05)
PROC: 5A0935A Assistance with Respiratory Ventilation, Less than 24 Consecutive Hours, High Flow/Velocity Cannula (ICD-10-PCS; principal; 2024-02-22)
PROC: 5A09357 Assistance with Respiratory Ventilation, Less than 24 Consecutive Hours, Continuous Positive Airway Pressure (ICD-10-PCS; 2024-02-22)
PROC: 5A0935A Assistance with Respiratory Ventilation, Less than 24 Consecutive Hours, High Flow/Velocity Cannula (ICD-10-PCS; 2024-02-23)
PROC: 5A0945A Assistance with Respiratory Ventilation, 24-96 Consecutive Hours, High Flow/Velocity Cannula (ICD-10-PCS; 2024-02-24)
PROC: 5A0935A Assistance with Respiratory Ventilation, Less than 24 Consecutive Hours, High Flow/Velocity Cannula (ICD-10-PCS; 2024-02-25)
PROC: 05H933Z Insertion of Infusion Device into Right Brachial Vein, Percutaneous Approach (ICD-10-PCS; 2024-02-25)
PROC: 02HV33Z Insertion of Infusion Device into Superior Vena Cava, Percutaneous Approach (ICD-10-PCS; 2024-02-28)
DX: I11.0 Hypertensive heart disease with heart failure (principal); I50.23 Acute on chronic systolic (congestive) heart failure; I21.A1 Myocardial infarction type 2; J96.01 Acute respiratory failure with hypoxia; J69.0 Pneumonitis due to inhalation of food and vomit; E87.0 Hyperosmolality and hypernatremia; G93.49 Other encephalopathy; N39.0 Urinary tract infection, site not specified; N17.9 Acute kidney failure, unspecified; E46 Unspecified protein-calorie malnutrition; F03.B4 Unspecified dementia, moderate, with anxiety; F32.A Depression, unspecified; R19.7 Diarrhea, unspecified; D35.02 Benign neoplasm of left adrenal gland; E11.9 Type 2 diabetes mellitus without complications; E83.42 Hypomagnesemia; E86.0 Dehydration; K57.90 Diverticulosis of intestine, part unspecified, without perforation or abscess without bleeding; E87.6 Hypokalemia; Z79.84 Long term (current) use of oral hypoglycemic drugs; Z79.899 Other long term (current) drug therapy; Z88.1 Allergy status to other antibiotic agents; Z88.5 Allergy status to narcotic agent; Z88.6 Allergy status to analgesic agent; Z90.49 Acquired absence of other specified parts of digestive tract; Z90.710 Acquired absence of both cervix and uterus; Z98.891 History of uterine scar from previous surgery; Z86.718 Personal history of other venous thrombosis and embolism
CPT/HCPCS: 36410; 36415; 36569; 36600; 70450; 70551; 71045; 71275; 73521; 76937; 76942; 80048; 80053; 80061; 80305; 80320; 81001; 81003; 82140; 82607; 82803; 82948; 83036; 83605; 83735; 83880; 83930; 83935; 84100; 84132; 84134; 84145; 84300; 84443; 84478; 84484; 85018; 85025; 85379; 85610; 85651; 85730; 87040; 87077; 87081; 87088; 87186; 87324; 87449; 92508; 92616; 93005; 93306; 93308; 93970; 94640; 94660; 94760; 97110; 97116; 97161; 97164; 97530; 97535; 99285; A4314; A4615; A4620; A5200; A6213; A6242; A6250; A6449; C1751; C1758; G0378; J0696; J1630; J1650; J1815; J1940; J1956; J2060; J2543; J3370; J3475; J3480; J3486; J3490; J7030; J7040; J7050; J7060; J7070; Q9967